=== PATIENT | male | born 1965 | race Caucasian/White ===

== ENCOUNTER 2019-05-13 08:54 | Emergency (ER) | payer OTHER ==
[~2019-05-13] VITALS: Ht 170.2 cm; Wt 67.6 kg
--- OUTSIDE RECORDS SUMMARY | ~2019-05-13 | XMS | Clinical Summary ---
Demographics + + + | Address | [address] | | | [place] [address] | + + + | Home Phone | | + + + | Preferred Language | Unknown | + + + | Marital Status | Single | + + + | Methodist Affiliation | PRO | + + + | Race | White | + + + | Ethnic Group | Not or | + + + Author + + + | Organization | Unknown | + + + | Address | Unknown | + + + | Phone | Unavailable | + + + Care Team Providers + +------+ + | Care Propulsion Generator Repairer Name | Role | Phone | + +------+ + PCP | Unavailable | + +------+ + Source Comments ESTHER is fully live on both [facility] and [facility] InPatient.[facility] Allergies Not on File Medications Not on file Active Problems Not on file Social History + +-------+ +--------+------+ | Tobacco Use | Types | Packs/Day | Years | Date | | | | | Used | | + +-------+ +--------+------+ | Never Assessed | | | | | + +-------+ +--------+------+ + + + | Sex Assigned at | Date Recorded | | | | + + + | Not on file | | + + + + + + + | Job Start Date | Occupation | Industry | + + + + | Not on file | Not on file | Not on file | + + + + + + + + | Travel History | Travel Start | Travel End | + + + + + + | No recent travel history available. | + + Last Filed Vital Signs Not on file Plan of Treatment + + + + + | Health Maintenance | Due Date | Last Done | Comments | + + + + + | Influenza (Flu) | | | | | vaccination (#1) | 9 | | | + + + + + | Pneumococcal | Aged Out | | No longer eligible | | vaccination | | | based on patient's | | | | | age to complete this | | | | | topic | + + + + + Results Not on filefrom Last 3 Months"
--- OUTSIDE RECORDS SUMMARY | ~2019-05-13 | XMS | Encounter Summary ---
Demographics + + + | Address | [address] | | | [place] [address] | + + + | Home Phone | | + + + | Preferred Language | Unknown | + + + | Marital Status | Single | + + + | Amish Affiliation | PRO | + + + | Race | White | + + + | Ethnic Group | Not or | + + + Author + + + | Author | [facility] | + + + | Organization | [facility] | + + + | Address | Unknown | + + + | Phone | Unavailable | + + + Care Team Providers + +------+ + | Care Jukebox Route Driver Name | Role | Phone | + +------+ + PCP | Unavailable | + +------+ + Encounter Details +--------+ + + + + | Date | Type | Department | Care Team | Description | +--------+ + + + + | 10/20/ | Abstract | Neurology at | Clinic, Neurology | | | 2019 | | [facility] & | | | | | | [address] | | | | | | Ruth Neida Mailcode: | | | | | | [facility] | | | | | | Health and Healing, | | | | | | [facility] | | | | | | [place], [place] | | | | | | [address] | | | | | | [phone] | | | +--------+ + + + [...]
--- OUTSIDE RECORDS SUMMARY | ~2019-05-13 | XMS | Encounter Summary ---
Demographics + + + | Address | [address] | | | [place] [address] | + + + | Home Phone | | + + + | Preferred Language | Unknown | + + + | Marital Status | Single | + + + | Denominational Affiliation | PRO | + + + | Race | White | + + + | Ethnic Group | Not or | + + + Author + + + | Author | [facility] | + + + | Organization | [facility] | + + + | Address | Unknown | + + + | Phone | Unavailable | + + + Care Team Providers + +------+ + | Care Renewable Energy Project Manager Name | Role | Phone | + +------+ + PCP | Unavailable | + +------+ + Encounter Details +--------+ + + + + | Date | Type | Department | Care Team | Description | +--------+ + + + + | 05/23/ | Abstract | Cardiology General | Unknown . | | | 2018 | | at [facility] [address] | | | | | | [address] Mailcode: | | | | | | [address] [facility] | | | | | | Health and Healing, | | | | | | Building | | | | | | Floor [place], [place] | | | | | | [address] | | | | | | [phone] | | | +--------+ + + + [...]
--- OUTSIDE RECORDS SUMMARY | ~2019-05-13 | XMS | Encounter Summary ---
Demographics + + + | Address | [address] | | | [place] [address] | + + + | Home Phone | | + + + | Preferred Language | Unknown | + + + | Marital Status | Single | + + + | Latter Day Affiliation | PRO | + + + | Race | White | + + + | Ethnic Group | Not or | + + + Author + + + | Author | [facility] | + + + | Organization | [facility] | + + + | Address | Unknown | + + + | Phone | Unavailable | + + + Care Team Providers + +------+ + | Care Fox Raiser Name | Role | Phone | + +------+ + PCP | Unavailable | + +------+ + Reason for Visit + + + | Reason | Comments | + + + | Returning Phone Call | | + + + Encounter Details +--------+ + + + + | Date | Type | Department | Care Team | Description | +--------+ + + + + | 05/28/ | Telephone | Cardiology in | Mikey Yu MD | Returning Phone Call | | 2018 | | [facility] | [address] | | | | | [place] at | [place], [place] | | | | | [address] | [address] | | | | | [facility] [address] | [phone] | | | | | [place], [place] | | | | | | [address] | | | | | | [phone] | | | +--------+ + + + [...]
--- OUTSIDE RECORDS SUMMARY | ~2019-05-13 | XMS | Encounter Summary ---
Demographics + + + | Address | [address] | | | [place] [address] | + + + | Home Phone | | + + + | Preferred Language | Unknown | + + + | Marital Status | Single | + + + | Sabianist Affiliation | PRO | + + + | Race | White | + + + | Ethnic Group | Not or | + + + Author + + + | Author | [facility] | + + + | Organization | [facility] | + + + | Address | Unknown | + + + | Phone | Unavailable | + + + Care Team Providers + +------+ + | Care Trailer Steerer Name | Role | Phone | + [...] [address] | | | | | [place] at | [place], [place] | | | | | [address] | [address] | | | | | [facility] [address] [address] | [phone] | | | | | [place], [place] | | | | | | [address] | | | | | | [phone] | | | +--------+ + + + [...]
--- OUTSIDE RECORDS SUMMARY | ~2019-05-13 | XMS | Encounter Summary ---
Demographics + + + | Address | [address] | | | [place] [address] | + + + | Home Phone | | + + + | Preferred Language | Unknown | + + + | Marital Status | Single | + + + | Holiness Affiliation | Unknown | + + + | Race | Unknown | + + + | Ethnic Group | Unknown | + + + Author + + + | Author | [employer] (Historical as of | | | 03-01-19) | + + + | Organization | [facility] [employer] (Historical as of | | | 03-01-19) | + + + | Address | Unknown | + + + | Phone | Unavailable | + + + Support + + +---------+ + | Name | Relationship | Address | Phone | + + +---------+ + | BettinaShaina | ECON | Unknown | | + + +---------+ + | Karan Matamoroson | ECON | Unknown | | + + +---------+ + Care Team Providers + +------+ + | Care Ground Support Equipment Fitter Name | Role | Phone | + +------+ + | Edgard Meade MD | PCP | | + +------+ + Encounter Details +--------+ + + + + | Date | Type | Department | Care Team | Description | +--------+ + + + + | 02/27/ | Documentati | [facility] | [place], | | | 2019 | on Only | [facility] Center | MD [address] | | | | | Patient Access [id number] | [address] | | | | | [address] [place], | [place] [address] | | | | | [place] [address] | [phone] | | | | | [phone] | | | +--------+ + + + [...] | | | + +---+---+---+ + + +---------+ + | Alcohol Use [...] on file | | + + + as of this encounter Plan of Treatment Not on fileas of this encounter Visit Diagnoses Not on filein this encounter"
--- OUTSIDE RECORDS SUMMARY | ~2019-05-13 | XMS | Clinical Summary ---
Demographics + + + | Address | [address] | | | [place] [address] | + + + | Home Phone | | + + + | Preferred Language | Unknown | + + + | Marital Status | Single | + + + | Congregation Affiliation | Unknown | + + + | Race | Unknown | + + + | Ethnic Group | Unknown | + + + Author + + + | Author | [employer] (Historical as of | | | 03-01-19) | + + + | Organization | [facility] [employer] (Historical as of | | | 03-01-19) [...] Team Providers + +------+ + | Care Patient Support Associate Name | Role | Phone | + [...] | | | | | | of mechoopda artery of | | | | | | left leg with | | | | | | intermit | | | | | | claudication ([facility]) | +--------+ + + + + | [...] of | | | | | | mechoopda artery of | | | | | | left leg with | | | | | | intermit | | | | | | claudication ([facility]) | | + +--------+ + + + [...] [facility] | [address] | [place] [address] | | + + + + + [...] +------+-------+ + | MEDICAID | EASTER | [id number] | | | [address] | | | N | | | | [place], [place] | | | [place] | | | | [address] | | | SECTION LEADER | | | | | + +--------+ [...] | reji | | | [address] | [address] | + +--------+ +--------+ + +"
--- OUTSIDE RECORDS SUMMARY | ~2019-05-13 | XMS | Encounter Summary ---
Demographics + + + | Address | [address] | | | [place] [address] | + + + | Home Phone | | + + + | Preferred Language | Unknown | + + + | Marital Status | Single | + + + | Synagogue Affiliation | PRO | + + + | Race | White | + + + | Ethnic Group | Not or | + + + Author + + + | Author | [facility] | + + + | Organization | [facility] | + + + | Address | Unknown | + + + | Phone | Unavailable | + + + Care Team Providers + +------+ + | Care Resource Room Teacher Name | Role | Phone | + +------+ + PCP | Unavailable | + +------+ + Encounter Details +--------+ + + + + | Date | Type | Department | Care Team | Description | +--------+ + + + + | 09/27/ | MyChart | [facility] | Hetal Hilario | RE: artemio del castillo | | 2011 | Encounter | Floor [address] | | | | | [address] | | | | | | Mailcode: [facility] | | | | | | [place], [place] | | | | | | [address] | | | | | | [phone] | | | +--------+ + + + [...]
--- OUTSIDE RECORDS SUMMARY | ~2019-05-13 | XMS | Encounter Summary ---
Demographics + + + | Address | [address] | | | [place] [address] | + + + | Home Phone | | + + + | Preferred Language | Unknown | + + + | Marital Status | Single | + + + | Shinto Affiliation | Unknown | + + + | Race | Unknown | + + + | Ethnic Group | Unknown | + + + Author + + + | Author | [employer] (Historical as of | | | 03-01-19) | + + + | Organization | [facility] [employer] (Historical as of | | | 03-01-19) [...] Team Providers + +------+ + | Care Bag Machine Operator Name | Role | Phone | + +------+ + | Edgard Meade MD | PCP | | + +------+ + Encounter Details +--------+ + + + + | Date | Type | Department | Care Team | Description | +--------+ + + + + | 02/27/ | Hospital | [facility] | [place], | Peripheral vascular | | 2019 | Encounter | [facility] | MD [address] | disease, unspecified | | | | Ultrasound [address] | (HCC); Atheroscler | | | | [address] | [place] [address] | of penobscot artery of | | | | [place] [address] | [phone] | left leg with | | | | [phone] | | intermit | | | | | | claudication ([facility]) | +--------+ + + + + Social [...] + + + as of this encounter Medications at Time of Discharge + + +-------+---------+--------+ + | Medication | Sig. | Disp. | Refills | Start | End Date | | | | | | Date | | + + +-------+---------+--------+ + | aspirin 81 MG | Take 81 mg by mouth | | | | | | chewable tablet | daily with | | | | | | | breakfast. | | | | | + + +-------+---------+--------+ + | meloxicam (MOBIC) | Take 15 mg by mouth | | | | | | 15 MG tablet | daily. | | | | | + + +-------+---------+--------+ + | pravastatin | Take 20 mg by mouth | | | | | | (PRAVACHOL) 20 MG | nightly. | | | | | | tablet | | | | | | + + +-------+---------+--------+ + as of this encounter Plan of Treatment Not on fileas of this encounter Procedures + +--------+ + + + | Procedure Name | Priori | Date/Time | Associated Diagnosis | Comments | | | ty | | | | + +--------+ + + + | US LOWER EXTREMITY | Routin | 02/27/2019 | Peripheral | Results for this | | ARTERIAL DUPLEX | e | 10:31 AM | vascular disease, | procedure are in the | | BILAT | | PDT | unspecified (HCC) | results section. | | | | | Atheroscler of | | | | | | penobscot artery of | | | | | | left leg with | | | | | | intermit | | | | | | claudication ([facility]) | | + +--------+ + + + in this encounter Results lower extremity arterial bilateral (02/27/2019 10:31 AM) + + + | Impressions | Performed At | + + + | 1. 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
--- OUTSIDE RECORDS SUMMARY | ~2019-05-13 | XMS | Clinical Summary ---
Demographics + + + | Address | [address] | | | [place] [address] | + + + | Home Phone | [email or web address] | + + + | Preferred Language | Unknown | + + + | Marital Status | Unknown | + + + | Mosque Affiliation | Unknown | + + + | Race | Unknown | + + + | Ethnic Group | Unknown | + + + Author + + + | Author | [facility] | | | and [place] | + + + | Organization | [facility] | | | and [...] Team Providers + +------+ + | Care Asp Net Developer Name | Role | Phone | + [...] + +---------+------+------+-------+ Active Problems Not on file Encounters +--------+ + + + + | Date | Type | Specialty | Care Team | Description | +--------+ + + + + | 02/27/ | Hospital | Radiology | Conversion | Peripheral vascular | | 2018 | Encounter | | Transaction, | disease, unspecified | | | | | Provider Unknown | ([facility]); Atheroscler | | | | | [address], | of [place] artery of | | | | | MD | left leg with | | | | | | intermit | | | | | | claudication ([facility]) | +--------+ + + + + from [...] + | Blood Pressure | 128/75 | 08/27/2018932 PST | + + + + | Pulse | 71 | 08/27/2018932 PST | + + + + | Temperature | - | - | + + + + | Respiratory Rate | - | - | + + + + | Oxygen Saturation | - | - | + + + + | Inhaled Oxygen | - | - | | Concentration | | | + + + + | Weight | 72.6 kg (160 lb) | 05/14/2018 1226 PDT | + + + + | [...] | ARTERIES BILATERAL | e | 10:31 PDT | | procedure are in the | | | | | | results section. | + +--------+ + + + from Last 3 Months Results VAS Lower Extremity Arteries Bilateral (02/27/2019 10:31 PDT) + + | Specimen | + [...] Note | + + | Obi, Rad Conversion - 03/21/2019 0955 PDT LOWER EXTREMITY ARTERIAL EXAM WITH IMAGING | | CLINICAL INFORMATION: | | Atherosclerosis with intermittent claudication | | COMPARISON: | | None | | PROCEDURE: | | Using continuous wave Doppler, systolic pressure measurements were | | recorded at the bilateral ankles and right brachial artery and indices | | were calculated. Additionally, Color-encoded duplex ultrasound was | | used to investigate the arteries of the lower extremities. | | Using continuous wave Doppler, systolic pressure measurements were | | recorded at the bilateral ankles and right brachial artery and indices | | were calculated. Additionally, Color-encoded duplex ultrasound was | | used to investigate the arteries of the bilateral lower extremities. | | FINDINGS: | | Peak systolic velocity and waveforms. All velocities in cm/sec. | | RIGHT | | Common Femoral Artery: 207, Triphasic. | | Profunda Femoral Artery: 92, Triphasic. | | Femoral Artery: | | Proximal: 100, Triphasic. | | Mid: 86, Triphasic. | | Distal: 106, Triphasic. | | Popliteal Artery: | | Mid: 118, Triphasic. | | Anterior Tibial Artery: | | Proximal: 49, Triphasic. | | Distal: 37, Triphasic. | | Posterior Tibial Artery: | | Proximal: 54, Triphasic. | | Distal: 65, Triphasic. | | Peroneal Artery: | | Proximal:37, Triphasic. | | Distal:34, Triphasic. | | LEFT: | | Common Femoral Artery: 90, Triphasic. | | Profunda Femoral Artery: 144, Triphasic. | | Femoral Artery: | | Proximal: 62, Triphasic. | | Mid: Occluded. | | Distal: 21, reconstituted. | | Popliteal Artery: | | Mid: 23, monophasic. | | Anterior Tibial Artery: | | Proximal: 32, Monophasic. | | Distal: 22, monophasic. | | Posterior Tibial Artery: | | Proximal: 21, monophasic. | | Distal: 18, monophasic. | | Peroneal Artery: | | Proximal:178, monophasic. | | Distal:Occluded. | | IMPRESSION: | | 1. Left leg: Triphasic inflow with mid superficial femoral artery | | occlusion and distal superficial femoral artery reconstitution with | | monophasic outflow. Two vessel distal runoff of anterior and posterior | | tibial arteries. | | 2. Right leg: Widely patent throughout with triphasic three-vessel | | runoff. | | Signed by: Germania Morris Howard | | Sign Date/Time: 02/27/2019 3:57 PM | + + from Last 3 Months"
--- OUTSIDE RECORDS SUMMARY | ~2019-05-13 | XMS | Encounter Summary ---
Demographics + + + | Address | [address] | | | [place] [address] | + + + | Home Phone | | + + + | Preferred Language | Unknown | + + + | Marital Status | Single | + + + | Mormon Affiliation | Unknown | + + + | Race | Unknown | + + + | Ethnic Group | Unknown | + + + Author + + + | Author | [employer] (Historical as of | | | 03-01-19) | + + + | Organization | [facility] [employer] (Historical as of | | | 03-01-19) [...] Providers + +------+ + | Care Manager Pharmacy Name | Role | Phone | + +------+ + | Edgard Meade MD | PCP | | + +------+ + Encounter Details +--------+ + + + + | Date | Type | Department | Care Team | Description | +--------+ + + + + | 02/27/ | Hospital | [facility] | [place], | Peripheral vascular | | 2019 | Encounter | [facility] | MD [address] | disease, unspecified | | | | Ultrasound [address] | (HCC); Atheroscler | | | | [address] | [place] [address] | of grindstone artery of | | | | [place] [address] | [phone] | left leg with | | | | [phone] | | intermit | | | | | | claudication ([facility]) | +--------+ + + + + Social [...] of | | | | | | grindstone artery of | | | | | | left leg with | | | | | | intermit | | | | | | claudication ([facility]) | | + +--------+ + + + [...] [facility] | [address] | [place] [address] | | + + + + + in this encounter Visit Diagnoses + + | Diagnosis | + + | Peripheral vascular disease, unspecified (HCC) | + + | Peripheral vascular disease, unspecified | + + | Atheroscler of grindstone artery of left leg with intermit claudication (HCC) | + + | Atherosclerosis of grindstone arteries of the extremities with intermittent claudication | + +"
--- OUTSIDE RECORDS SUMMARY | ~2019-05-13 | XMS | Encounter Summary ---
Demographics + + + | Address | [address] | | | [place] [address] | + + + | Home Phone | [email or web address] | + + + | Preferred Language | Unknown | + + + | Marital Status | Unknown | + + + | Religion Affiliation | Unknown | + + + | Race | Unknown | + + + | Ethnic Group | Unknown | + + + Author + + + | Author | [facility] | | | and [place] | + + + | Organization | [facility] | | | and [place] | + + + | Address | Unknown | + + + | Phone | Unavailable | + + + Support + + +---------+ + | Name | Relationship | Address | Phone | + + +---------+ + | Shaina Dunbar | ECON | Unknown | | + + +---------+ + | Karan Matamoroson | ECON | Unknown | | + + +---------+ + Care Team Providers + +------+ + | Care Vat Tender Name | Role | Phone | + +------+ + | Edgard Meade MD | PCP | | + +------+ + Encounter Details +--------+ + + + + | Date | Type | Department | Care Team | Description | +--------+ + + + + | 02/27/ | Hospital | [facility] | Conversion | Peripheral vascular | | 2019 | Encounter | [facility] | Transaction, | disease, unspecified | | | | ULTRASOUND [address] | Provider Unknown | ([facility]); Atheroscler | | | | [address] | [phone] | of [place] artery of | | | | [place], [place] | | left leg with | | | | [address] | Beau Liao, | intermit | | | | [phone] | [address] | claudication ([facility]) | | | | | [address]VE [place], [place] | | | | | | [address] | | | | | | | [...] + | Adebayo Crocker Conversion - 03/21/2019 0955 PDT LOWER EXTREMITY [...] unspecified | + + | Atheroscler of [place] artery of left leg with intermit claudication (HCC) | | Atherosclerosis of [place] arteries of the extremities with intermittent claudication | + + documented in this encounter"
--- OUTSIDE RECORDS SUMMARY | ~2019-05-13 | XMS | Encounter Summary ---
Demographics + + + | Address | [address] | | | [place] [address] | + + + | Home Phone | | + + + | Preferred Language | Unknown | + + + | Marital Status | Single | + + + | Jainism Affiliation | PRO | + + + | Race | White | + + + | Ethnic Group | Not or | + + + Author + + + | Author | [facility] | + + + | Organization | [facility] | + + + | Address | Unknown | + + + | Phone | Unavailable | + + + Care Team Providers + +------+ + | Care Web Development Intern Name | Role | Phone | + +------+ + PCP | Unavailable | + +------+ + Encounter Details +--------+ + + + + | Date | Type | Department | Care Team | Description | +--------+ + + + + | 05/23/ | Abstract | Cardiology General | Unknown . | | | 2018 | | at [facility] [address] | | | | | | [address] Mailcode: | | | | | | [facility] | | | | | | Health and Healing, | | | | | | Building | | | | | | Floor [place], [place] | | | | | | [address] | | | | | | [phone] | | | +--------+ + + + [...]
--- OUTSIDE RECORDS SUMMARY | ~2019-05-13 | XMS | Clinical Summary ---
Demographics + + + | Address | [address] | | | [place] [address] | + + + | Home Phone | [email or web address] | + + + | Preferred Language | Unknown | + + + | Marital Status | Unknown | + + + | Worship Affiliation | Unknown | + + + | Race | Unknown | + + + | Ethnic Group | Unknown | + + + Author + + + | Author | [facility] | | | and [place] | + + + | Organization | [facility] | | | [...] Team Providers + +------+ + | Care Boring Machine Operator Production Name | Role | Phone | + [...] | | | | Provider Unknown | ([facility]); Atheroscler | | | | | [address] Liao, | of [place] artery of | | | | | MD | left leg with | | | | | | intermit | | | | | | claudication ([facility]) | +--------+ + + + + from [...]
--- OUTSIDE RECORDS SUMMARY | ~2019-05-13 | XMS | Encounter Summary ---
Demographics + + + | Address | [address] | | | [place] [address] | + + + | Home Phone | | + + + | Preferred Language | Unknown | + + + | Marital Status | Single | + + + | Mandaen Affiliation | PRO | + + + | Race | White | + + + | Ethnic Group | Not or | + + + Author + + + | Author | [facility] | + + + | Organization | [facility] | + + + | Address | Unknown | + + + | Phone | Unavailable | + + + Care Team Providers + +------+ + | Care Windows Server Architect Name | Role | Phone | + +------+ + PCP | Unavailable | + +------+ + Encounter Details +--------+ + + + + | Date | Type | Department | Care Team | Description | +--------+ + + + + | 09/27/ | MyChart | [facility]th | Heatl Hilario | RE: artemio del castillo | | 2011 | Encounter | Floor [address] | | | | | [address] | | | | | | Mailcode: [facility] | | | | | | [place], [place] | | | | | | [address] | | | | | | [phone] | | | +--------+ + + + [...]
--- OUTSIDE RECORDS SUMMARY | ~2019-05-13 | XMS | Encounter Summary ---
Demographics + + + | Address | [address] | | | [place] [address] | + + + | Home Phone | | + + + | Preferred Language | Unknown | + + + | Marital Status | Single | + + + | Restoration Affiliation | PRO | + + + | Race | White | + + + | Ethnic Group | Not or | + + + Author + + + | Author | [facility] | + + + | Organization | [facility] | + + + | Address | Unknown | + + + | Phone | Unavailable | + + + Care Team Providers + +------+ + | Care Soil Technician Name | Role | Phone | + +------+ + PCP | Unavailable | + +------+ + Encounter Details +--------+ + + + + | Date | Type | Department | Care Team | Description | +--------+ + + + + | 10/20/ | Abstract | Neurology at | Clinic, Neurology | | | 2019 | | [facility] | [facility] [address] | | | | | | Ruth Neida Mailcode: | | | | | | [facility] | | | | | | Health and Healing, | | | | | | [facility] | | | | | | [place], [place] | | | | | | [address] | | | | | | [phone] | | | +--------+ + + + [...]
--- OUTSIDE RECORDS SUMMARY | ~2019-05-13 | XMS | Encounter Summary ---
Demographics + + + | Address | [address] | | | [place] [address] | + + + | Home Phone | | + + + | Preferred Language | Unknown | + + + | Marital Status | Single | + + + | Mandaeism Affiliation | Unknown | + + + | Race | Unknown | + + + | Ethnic Group | Unknown | + + + Author + + + | Author | [employer] [facility] (Historical as of | | | 03-01-19) | + + + | Organization | [facility] (Historical as of | | | 03-01-19) [...] Team Providers + +------+ + | Care Operations Forester Name | Role | Phone | + +------+ + | Edgard Meade MD | PCP | | + +------+ + Encounter Details +--------+ + + + + | Date | Type | Department | Care Team | Description | +--------+ + + + + | 02/27/ | Documentati | [facility] | [place], | | | 2019 | on Only | Medical Center | MD [address] | | | | | Patient Access [id number] | [address] | | | | | Rufino [address] [place], | [place] [address] | | | | | [place] [address] | [phone] | | | | | [phone] | | | +--------+ + + + [...]
--- OUTSIDE RECORDS SUMMARY | ~2019-05-13 | XMS | Encounter Summary ---
Demographics + + + | Address | [address] | | | [place] [address] | + + + | Home Phone | [email or web address] | + + + | Preferred Language | Unknown | + + + | Marital Status | Unknown | + + + | Oriental Orthodox Affiliation | Unknown | + + + [...] Team Providers + +------+ + | Care Sole Molding Machine Operator Name | Role | Phone | + +------+ + | Edgard Meade MD | PCP | | + +------+ + Encounter Details +--------+ + + + + | Date | Type | Department | Care Team | Description | +--------+ + + + + | 02/27/ | Hospital | [facility] | Conversion | Peripheral vascular | | 2019 | Encounter | [facility] | Transaction, | disease, unspecified | | | | ULTRASOUND [address] | Provider Unknown | ([facility]); Atheroscler | | | | [address] | [phone] | of [place] artery of | | | | [place], [place] | | left leg with | | | | [address] | [address], | intermit | | | | [phone] | [address] | claudication ([facility]) | | | | | [address]VE [place], [place] | | | | | | [address] | | | | | | | [...] unspecified | + + | 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
--- OUTSIDE RECORDS SUMMARY | ~2019-05-13 | XMS | Clinical Summary ---
Demographics + + + | Address | [address] | | | [place] [address] | + + + | Home Phone | | + + + | Preferred Language | Unknown | + + + | Marital Status | Single | + + + | Congregational Affiliation | Unknown | + + + | Race | Unknown | + + + | Ethnic Group | Unknown | + + + Author + + + | Author | [employer] (Historical as of | | | 03-01-19) | + + + | Organization | [facility] (Historical as of | | | 03-01-19) [...] Team Providers + +------+ + | Care Chronic Disease Epidemiologist Name | Role | Phone | + [...] | | | | | | of [place] artery of | | | | | | left leg with | | | | | | intermit | | | | | | claudication ([facility]) | +--------+ + + + + | [...] of | | | | | | atka artery of | | | | | | left leg with | | | | | | intermit | | | | | | claudication ([facility]) | | + +--------+ + + + [...] [facility] | [address] | [place] [address] | | + + + + + [...] +------+-------+ + | MEDICAID | EASTER | [id number] | | | [address] | | | [place] | | | | [place], [place] | | | [place] | | | | [address] | | | [employer] EXPERT | | | | | + +--------+ [...] | reji | | | [address] | [address] | + +--------+ +--------+ + +"
--- OUTSIDE RECORDS SUMMARY | ~2019-05-13 | XMS | Clinical Summary ---
Demographics + + + | Address | [address] | | | [place] [address] | + + + | Home Phone | | + + + | Preferred Language | Unknown | + + + | Marital Status | Single | + + + | Rastafari Affiliation | PRO | + + + | Race | White | + + + | Ethnic Group | Not or | + + + Author + + + | Organization | Unknown | + + + | Address | Unknown | + + + | Phone | Unavailable | + + + Care Team Providers + +------+ + | Care Relief Manager Name | Role | Phone | + +------+ + PCP | Unavailable | + +------+ + Source Comments ESTHER is fully live on both [facility] Ambulatory and [facility] InPatient.[facility] Allergies Not on File Medications Not [...]
[~2019-05-13 08:54] MED LIST: MECLIZINE HCL25 MG PO
--- OUTSIDE RECORDS SUMMARY | 2019-05-13 08:58 | XMS ---
PreManage Notification: TESSA SABILLON Security Learning Developer Events No recent Security Events currently on file CRITERIA MET - Group Notification CARE PROVIDERS There are no care providers on record at this time. Jahaira has no Care Guidelines for this patient. Andrew VISIT COUNT (12 MO.) 1 DAYNA Braxton TOTAL 1 NOTE: Visits indicate total known visits. ED/C VISIT TRACKING (12 MO.) 05/13/2019 08:55 DAYNA Garcia [place] TYPE: Emergency COMPLAINT: - LIVER PROBLEM INPATIENT VISIT TRACKING (12 MO.) No inpatient visits to display in this time frame [id number]
[2019-05-13] MEDS ORDERED: MELOXICAM15 MG PO (09:13)
[2019-05-13] MEDS ORDERED: METFORMIN HCL500 M1 PO (09:13)
[2019-05-13] MEDS ORDERED: ATORVASTATIN CA40 MG PO (09:13)
[2019-05-13] MEDS ORDERED: CLOPIDOGREL75 MG PO (09:13)
[2019-05-13] MEDS ORDERED: NORCO 5-325 TA1 EACH PO (12:41)
== END 2019-05-13 14:59 | disposition short-term general hospital (02) ==
LOC: ED 08:54
DX: K83.1 Obstruction of bile duct (principal); K86.9 Disease of pancreas, unspecified; Z87.891 Personal history of nicotine dependence; Z79.899 Other long term (current) drug therapy; Z79.84 Long term (current) use of oral hypoglycemic drugs
CPT/HCPCS: 36415; 71046; 74178; 80053; 83690; 85025; 85610; 85730; 99285-25; Q9967

== ENCOUNTER 2019-05-30 11:04 | Emergency (ER) | payer OTHER ==
[~2019-05-30] VITALS: Ht 170.2 cm; Wt 64.9 kg
--- OUTSIDE RECORDS SUMMARY | ~2019-05-30 | XMS | Encounter Summary ---
Demographics + + + | Address | [address] | | | [place] [address] | + + + | Home Phone | | + + + | Preferred Language | Unknown | + + + | Marital Status | Single | + + + | Anabaptism Affiliation | PRO | + + + | Race | White | + + + | Ethnic Group | Not or | + + + Author + + + | Author | [facility] | + + + | Organization | [facility] | + + + | Address | Unknown | + + + | Phone | Unavailable | + + + Care Team Providers + +------+ + | Care Manager Lighting Name | Role | Phone | + +------+ + PCP | Unavailable | + +------+ + Encounter Details +--------+ + + + + | Date | Type | Department | Care Team | Description | +--------+ + + + + | 10/20/ | Abstract | Neurology at | Clinic, Neurology | | | 2019 | | [facility] & | | | | | | [address]aling [address] | | | | | | Ruth Neida Mailcode: | | | | | | [facility] | | | | | | Health and Healing, | | | | | | [facility] | | | | | | [place], [place] | | | | | | [address] | | | | | | [phone] | | | +--------+ + + + + Social History + +-------+ +--------+------+ [...] recent travel history available. | + + documented as of this encounter Plan of Treatment Not on filedocumented as of this encounter Visit Diagnoses Not on filedocumented in this encounter"
--- OUTSIDE RECORDS SUMMARY | ~2019-05-30 | XMS | Encounter Summary ---
Demographics + + + | Address | [address] | | | [place] [address] | + + + | Home Phone | | + + + | Preferred Language | Unknown | + + + | Marital Status | Single | + + + | Lutheran Affiliation | PRO | + + + | Race | White | + + + | Ethnic Group | Not or | + + + Author + + + | Author | [facility] | + + + | Organization | [facility] | + + + | Address | Unknown | + + + | Phone | Unavailable | + + + Care Team Providers + +------+ + | Care Treasury Consultant Name | Role | Phone | + +------+ + PCP | Unavailable | + +------+ + Encounter Details +--------+ + + + + | Date | Type | Department | Care Team | Description | +--------+ + + + + | 05/23/ | Abstract | Cardiology General | Unknown . | | | 2018 | | at [facility] [address] | | | | | | [address] Mailcode: | | | | | | [facility] | | | | | | Health and Healing, | | | | | | Building | | | | | | Floor [place], [place] | | | | | | [address] | | | | | | [phone] | | | +--------+ + + + [...]
--- OUTSIDE RECORDS SUMMARY | ~2019-05-30 | XMS | Encounter Summary ---
Demographics + + + | Address | [address] | | | [place] [address] | + + + | Home Phone | [email or web address] | + + + | Preferred Language | Unknown | + + + | Marital Status | Unknown | + + + | Worship Affiliation | Unknown | + + + | Race | Unknown | + + + | Ethnic Group | Unknown | + + + Author + + + | Author | [facility] | | | and [place] | + + + | Organization | [facility] | | | [...] Team Providers + +------+ + | Care Dimensional Engineer Name | Role | Phone | + +------+ + PCP | Unavailable | + +------+ + Encounter Details +--------+ + + + + | Date | Type | Department | Care Team | Description | +--------+ + + + + | 05/14/ | Hospital | [facility] | Conversion | Mass of left cardiac | | 2018 | Encounter | [facility] | Transaction, | ventricle | | | | [address] | Provider Unknown | | | | | [place], [place] | [phone] | | | | | [address] | | | | | | [phone] | Edgard Meade MD | | | | | | [address] | | | | | | [place] | | | | | | [address] | | | | | | | [...] + + documented as of this encounter Last Filed Vital Signs + + + + + | Vital Sign | Reading | Time Taken | Comments | + + + + + | Blood Pressure | - | - | | + + + + + | Pulse | - | - | | + [...] | | + + + + + documented in this encounter Plan of Treatment Not on filedocumented as of this encounter Procedures + +--------+ + + + | Procedure Name | Priori | Date/Time | Associated Diagnosis | Comments | | | ty | | | | + +--------+ + + + | MRI CARDIAC W WO | Routin | 05/14/2018 | | Results for this | | CONTRAST | e | 1:18 PM | | procedure are in the | | | | PDT | | results section. | + +--------+ + + + documented in this encounter Results MRI Cardiac w wo Contrast (05/14/2018 1:18 PM PDT) + + | Specimen | + + | | + + + + + | Impressions | Performed At | + + + | 1. Possible small left ventricular mass visualized on | | | echocardiogram dated 04/23/2018 is not visualized with MRI. Recommend | | | continued attention on follow-up echocardiogram in 6 months. | | | These findings were communicated via telephone to Dr. Meade by | | | Dilshad on 05/14/2018 at 1:30 PM. | | + + + + + + | Narrative | Performed At | + + + | [facility] MRI CARDIAC WITH WITHOUT CONTRAST 05/14/2018 1:18 PM | | | HISTORY: 53 years. Male. Evaluate left ventricular mass. | | | TECHNIQUE: MRI CARDIAC WITH WITHOUT CONTRAST. Multiplanar | | | multisequence cardiac MRI with and without contrast. Contrast: 7 | | | mL Gadavist. COMPARISON: Echocardiogram dated 04/23/2018. | | | FINDINGS: Normal cardiac size. No pericardial effusion. No filling | | | defect within the heart. Normal myocardial perfusion at rest. | | | No regional wall motion abnormality. Possible small left | | | ventricular mass visualized on echocardiogram dated 04/23/2018 is not | | | visualized with MRI. No abnormal early or delayed myocardial | | | enhancement. | | + + + + --+ | Procedure Note | + --+ | Adebayo Crocker - 02/26/2019 11:41 [facility] | | EVUHOZLO81/30/2018 1:18 PM HISTORY:53 years. Male. Evaluate left ventricular mass. | | TECHNIQUE:MRI CARDIAC WITH WITHOUT CONTRAST. Multiplanar multisequence cardiac MRI with | | and without contrast. Contrast: 7 mL Gadavist. COMPARISON:Echocardiogram dated | | 04/23/2018. FINDINGS:Normal cardiac size. No pericardial effusion. No filling defect | | within the heart. Normal myocardial perfusion at rest. No regional wall motion | | abnormality. Possible small left ventricular mass visualized on echocardiogram dated | | 04/23/2018 is not visualized with MRI. No abnormal early or delayed myocardial | | enhancement. IMPRESSION: 1. Possible small left ventricular mass visualized on | | echocardiogram dated 04/23/2018 is not visualized with MRI. Recommend continued attention | | on follow-up echocardiogram in 6 months. These findings were communicated via | | telephone to Dr. Meade by Dr. Yung on 05/14/2018 at 1:30 PM. | |Echocardiogram dated 04/23/2018. | | | |FINDINGS: | |Normal cardiac size. No pericardial effusion. No filling defect within the heart. | | | |Normal myocardial perfusion at rest. | | | |No regional wall motion abnormality. | | | |Possible small left ventricular mass visualized on echocardiogram dated 04/23/2018 is not vi sualized with MRI. | | | |No abnormal early or delayed myocardial enhancement. | | | |IMPRESSION: | |1. Possible small left ventricular mass visualized on echocardiogram dated 04/23/2018 is no t visualized with MRI. Recommend continued attention on follow-up echocardiogram in 6 months . | | | | | |These findings were communicated via telephone to Dr. Meade by Dr. Yung on 05/14/2018 a t 1:30 PM. | | | | | + --+ documented in this encounter Visit Diagnoses + + | Diagnosis | + + | Mass of left cardiac ventricle | + + documented in this encounter"
--- OUTSIDE RECORDS SUMMARY | ~2019-05-30 | XMS | Encounter Summary ---
Demographics + + + | Address | [address] | | | [place] [address] | + + + | Home Phone | | + + + | Preferred Language | Unknown | + + + | Marital Status | Single | + + + | Gnosticism Affiliation | PRO | + + + | Race | White | + + + | Ethnic Group | Not or | + + + Author + + + | Author | [facility] | + + + | Organization | [facility] | + + + | Address | Unknown | + + + | Phone | Unavailable | + + + Care Team Providers + +------+ + | Care Patch Finisher Name | Role | Phone | + +------+ + PCP | Unavailable | + +------+ + Encounter Details +--------+ + + + + | Date | Type | Department | Care Team | Description | +--------+ + + + + | 09/27/ | MyChart | [facility] 7th | Hetal Hilario | RE: artemio del castillo | | 2011 | Encounter | Floor [address] | | | | | [address] | | | | | | Mailcode: [facility] | | | | | | [place], [place] | | | | | | [address] | | | | | | [phone] | | | +--------+ + + + [...]
--- OUTSIDE RECORDS SUMMARY | ~2019-05-30 | XMS | Encounter Summary ---
Demographics + + + | Address | [address] | | | [place] [address] | + + + | Home Phone | [email or web address] | + + + | Preferred Language | Unknown | + + + | Marital Status | Unknown | + + + | Sabianist Affiliation | Unknown | + + + | Race | Unknown | + + + | Ethnic Group | Unknown | + + + Author + + + | Author | [facility] | | | and [place] | + + + | Organization | [facility] | | | [...] Team Providers + +------+ + | Care Charter Representative Name | Role | Phone | + +------+ + | Edgard Meade MD | PCP | | + +------+ + Encounter Details +--------+ + + + + | Date | Type | Department | Care Team | Description | +--------+ + + + + | 04/23/ | Orders Only | [facility] | Edgard Meade, | | | 2017 | | CONVERSION [address] | MD [address] | | | | | [address] | [address] [place] | | | | | [place], [place] | [address] | | | | | [address] | | | | | | [phone] | | | +--------+ + + + [...] | + +--------+ + + + | ECHO INTERPRETATION | Routin | 04/23/2018 | | Results for this | | OF OUTSIDE FILMS | e | 3:41 PM | | procedure are in the | | | | PDT | | results section. | + +--------+ + + + documented in this encounter Results ECHO Interpretation of Outside Films (04/23/2018 3:41 PM PDT) + + | Specimen | + + | | + + + + + | Impressions | Performed At | + + + | 1. LV size, wall thickness and systolic function are normal, with an | | | EF of 60%. 2. The right ventricle is normal in size and function. | | | 3. There is a rounded, 1.1x1.0 cm echodense, contractile mass of | | | undetermined etiology in the basal posterolateral wall, seen in the | | | apical 4 chamber view (image # 35). Consider a cardiac MRI for | | | better evaluation. 4. No significant valvular abnormalities are | | | noted. | | + + + + + + | Narrative | Performed At | + + + | Patient Name: Herve Matamoros Date of : 1965 | | | Performing Physician: KELSEY MORFNI MD | | | | | | INDICATIONS Near syncope, chest pain CONCLUSIONS | | | 1. LV size, wall thickness and systolic function are | | | normal, with an EF of 60%. 2. The right ventricle is normal in size | | | and function. 3. There is a rounded, 1.1x1.0 cm echodense, | | | contractile mass of undetermined etiology in the basal posterolateral | | | wall, seen in the apical 4 chamber view (image # 35). Consider a | | | cardiac MRI for better evaluation. 4. No significant valvular | | | abnormalities are noted. FINDINGS -------- ECG rhythm: Sinus | | | rhythm. Study: A 2-dimensional transthoracic echocardiogram with | | | m-mode, spectral and color flow Doppler was perfomed. Study: This was | | | a technically adequate study. Left Ventricle: LV size, wall | | | thickness and systolic function are normal, with an EF of 60%. Left | | | Ventricle: No regional wall motion abnormalities. Left Ventricle: The | | | diastolic filling pattern is normal for the age of the patient. | | | Right Ventricle: The right ventricle is normal in size and function. | | | Left Atrium: The left atrium is normal in size. Right Atrium: The | | | right atrium is normal in size. Aortic Valve: The aortic valve | | | appears to be trileaflet. Aortic Valve: There is mild aortic valve | | | sclerosis without stenosis. Aortic Valve: There is no evidence of | | | aortic regurgitation. Mitral Valve: The mitral valve is normal. | | | Mitral Valve: There is trace mitral regurgitation. Mitral Valve: No | | | evidence of MVP Tricuspid Valve: The tricuspid valve appears | | | structurally normal. Tricuspid Valve: Trace tricuspid regurgitation | | | present. Tricuspid Valve: There is no evidence of pulmonary | | | hypertension. Tricuspid Valve: The right ventricular systolic | | | pressure (pulmonary artery systolic pressure), as measured by Doppler, | | | is 21.62mmHg. Pulmonic Valve: The pulmonic valve is normal. | | | Pericardium: There is no pericardial effusion. IVC/Hepatic Veins: The | | | IVC is normal size (1.5-2.5cm) and collapses >50% with sniff, | | | consistent with central venous pressures of 5-10mmHg. Aorta: The | | | aortic root, ascending aorta and aortic arch are normal. Mass: There | | | is a rounded, 1.1x1.0 cm echodense, contractile mass of undetermined | | | etiology in the basal posterolateral wall, seen in the apical 4 | | | chamber view (image # 35). It Thrombus: No clot visualized | | | Thrombus: No vegetation visualized. Septum: No ASD observed. Septum: | | | No VSD observed. MEASUREMENTS Ao asc: 3.16 cm | | | Ao Diam: 3.[address] junct: 3.11 cm IVC: 1.88 cm LA | | | Diam: 3.40 cm LA Major: 4.32 cm EDV(Teich): 127.79 ml | | | IVSd: 1.00 cm LVIDd: 5.17 cm LVPWd: 0.95 cm LVOT Area: | | | 3.65 cm2 LVOT Diam: 2.15 cm %FS: 36.80 % EF(Teich): 66.28 | | | % ESV(Teich): 43.08 ml LVIDs: 3.26 cm SV(Teich): 84.70 ml | | | RA Major: 4.29 cm RV Major: 6.27 cm RVIDd: 2.42 cm TV Mary Jo | | | Diam: 2.67 cm Ao Root: 3.04 cm Ao Diam SVals: 3.11 cm | | | LVEF MOD A2C: 58.48 % SV MOD A2C: 52.08 ml LVEF MOD A4C: | | | 60.88 % SV MOD A4C: 53.63 ml EF Biplane: 59.66 % LVEDV MOD | | | BP: 89.11 ml LVESV MOD BP: 35.95 ml LVEDV MOD A2C: 89.06 ml | | | LVLd A2C: 7.92 cm LVEDV MOD A4C: 88.08 ml LVLd A4C: 8.05 | | | cm LVESV MOD A2C: 36.97 ml LVLs A2C: 6.67 cm LVESV MOD A4C: | | | 34.44 ml LVLs A4C: 6.83 cm LAESV(A-L): 37.27 ml LAESV | | | Index (A-L): 20.36 ml/m2 LAAs A2C: 14.41 cm2 LAESV A-L A2C: | | | 36.79 ml LALs A2C: 4.79 cm LAAs A4C: 14.19 cm2 LAESV A-L | | | A4C: 36.70 ml LALs A4C: 4.65 cm RAAs: 11.64 cm2 RAESV A-L: | | | 25.41 ml RAESV MOD: 24.38 ml RALs: 4.52 cm TAPSE: 2.19 | | | cm AV maxP.31 mmHg AV meanP.23 mmHg AV Vmax: 1.03 | | | m/s AV Vmean: 0.69 m/s AV VTI: 19.15 cm KIMBERLY Vmax: 3.29 | | | cm2 KIMBERLY (VTI): 3.10 cm2 LVOT maxP.51 mmHg LVOT meanPG: | | | 1.70 mmHg LVSI Dopp: 32.50 ml/m2 LVSV Dopp: 59.49 ml LVOT | | | Vmax: 0.93 m/s LVOT Vmean: 0.59 m/s LVOT VTI: 16.27 cm MV | | | A Leonides: 0.51 m/s MV Dec Cherry: 3.90 m/s2 MV DecT: 188.43 ms | | | MV E Leonides: 0.73 m/s MV E/A Ratio: 1.43 MV PHT: 54.64 ms | | | MVA By PHT: 4.02 cm2 Septal e': 0.08 m/s Septal E/e': 8.69 | | | Lateral e': 0.09 m/s Lateral E/e': 7.47 RAP: 5 mmHg RVSP: | | | 21.62 mmHg TR maxP.62 mmHg TR Vmax: 2.03 m/s | | | Hydrometer Tester: [email or web address]-PIERRE Authenticated by: KELSEY MORFIN MD Report | | | Date/Time: -- [id number]:15:51 | | + + + + + | Procedure Note | + + | Adebayo Crocker Conversion - 03/06/2019 4:47 PM PDT Patient Name: Jay Matamoros of | | : 1965 Performing Physician: KELSEY MORFIN, | | INDICATIONS N | | ear syncope, chest pain CONCLUSIONS 1. LV size, wall thickness and systolic | | function are normal, with an EF of 60%.2. The right ventricle is normal in size and | | function.3. There is a rounded, 1.1x1.0 cm echodense, contractile mass of undetermined | | etiology in the basal posterolateral wall, seen in the apical 4 chamber view (image # | | 35). Consider a cardiac MRI for better evaluation. 4. No significant valvular | | abnormalities are noted. FINDINGS--------ECG rhythm: Sinus rhythm.Study: A 2-dimensional | | transthoracic echocardiogram with m-mode, spectral and color flow Doppler was | | perfomed.Study: This was a technically adequate study.Left Ventricle: LV size, wall | | thickness and systolic function are normal, with an EF of 60%.Left Ventricle: No | | regional wall motion abnormalities.Left Ventricle: The diastolic filling pattern is | | normal for the age of the patient.Right Ventricle: The right ventricle is normal in size | | and function.Left Atrium: The left atrium is normal in size.Right Atrium: The right | | atrium is normal in size.Aortic Valve: The aortic valve appears to be trileaflet.Aortic | | Valve: There is mild aortic valve sclerosis without stenosis.Aortic Valve: There is no | | evidence of aortic regurgitation.Mitral Valve: The mitral valve is normal.Mitral Valve: | | There is trace mitral regurgitation.Mitral Valve: No evidence of MVPTricuspid Valve: The | | tricuspid valve appears structurally normal.Tricuspid Valve: Trace tricuspid | | regurgitation present.Tricuspid Valve: There is no evidence of pulmonary | | hypertension.Tricuspid Valve: The right ventricular systolic pressure (pulmonary artery | | systolic pressure), as measured by Doppler, is 21.62mmHg.Pulmonic Valve: The pulmonic | | valve is normal.Pericardium: There is no pericardial effusion.IVC/Hepatic Veins: The IVC | | is normal size (1.5-2.5cm) and collapses >50% with sniff, consistent with central | | venous pressures of 5-10mmHg.Aorta: The aortic root, ascending aorta and aortic arch are | | normal.Mass: There is a rounded, 1.1x1.0 cm echodense, contractile mass of undetermined | | etiology in the basal posterolateral wall, seen in the apical 4 chamber view (image # | | 35). ItThrombus: No clot visualizedThrombus: No vegetation visualized.Septum: No ASD | | observed.Septum: No VSD observed. MEASUREMENTS Ao asc: 3.16 cmAo Diam: | | 3.[address] junct: 3.11 cmIVC: 1.88 cmLA Diam: 3.40 cmLA Major: 4.32 | | cmEDV(Teich): 127.79 mlIVSd: 1.00 cmLVIDd: 5.17 cmLVPWd: 0.95 cmLVOT Area: | | 3.65 [id number] Diam: 2.15 cm%FS: 36.80 %EF(Teich): 66.28 %ESV(Teich): 43.08 | | mlLVIDs: 3.26 cmSV(Teich): 84.70 mlRA Major: 4.29 cmRV Major: 6.27 cmRVIDd: | | 2.42 cmTV Mary Jo Diam: 2.67 cmAo Root: 3.04 cmAo Diam SVals: 3.11 cmLVEF MOD A2C: | | 58.48 %SV MOD A2C: 52.08 mlLVEF MOD A4C: 60.88 %SV MOD A4C: 53.63 mlEF Biplane: | | 59.66 %LVEDV MOD BP: 89.11 mlLVESV MOD BP: 35.95 mlLVEDV MOD A2C: 89.06 mlLVLd | | A2C: 7.92 cmLVEDV MOD A4C: 88.08 mlLVLd A4C: 8.05 cmLVESV MOD A2C: 36.97 mlLVLs | | A2C: 6.67 cmLVESV MOD A4C: 34.44 mlLVLs A4C: 6.83 cmLAESV(A-L): 37.27 mlLAESV | | Index (A-L): 20.36 ml/m2LAAs A2C: 14.41 [id number] A-L A2C: 36.79 mlLALs A2C: 4.79 | | cmLAAs A4C: 14.19 [id number] A-L A4C: 36.70 mlLALs A4C: 4.65 cmRAAs: 11.64 | | [id number] A-L: 25.41 mlRAESV MOD: 24.38 mlRALs: 4.52 cmTAPSE: 2.19 cmAV maxPG: | | 4.31 mmHgAV meanP.23 mmHgAV Vmax: 1.03 m/Bhavesh Vmean: 0.69 m/Bhavesh VTI: 19.15 | | cmAVA Vmax: 3.29 cm2AVA (VTI): 3.10 [id number] maxP.51 mmHgLVOT meanP.70 | | mmHgLVSI Dopp: 32.50 ml/m2LVSV Dopp: 59.49 mlLVOT Vmax: 0.93 m/sLVOT Vmean: 0.59 | | m/sLVOT VTI: 16.27 cmMV A Leonides: 0.51 m/sMV Dec Cherry: 3.90 m/s2MV DecT: 188.43 | | msMV E Leonides: 0.73 m/sMV E/A Ratio: 1.43MV PHT: 54.64 msMVA By PHT: 4.02 hn3Gvesyu | | e': 0.08 m/sSeptal E/e': 8.69Lateral e': 0.09 m/sLateral E/e': 7.47RAP: 5 | | mmHgRVSP: 21.62 mmHgTR maxP.62 mmHgTR Vmax: 2.03 m/s Hydrometer Tester: | | DHAuthenticated by: INEZ EVERETTepaziza Date/Time: -- [id number]:15:51 | | IMPRESSION: 1. LV size, wall thickness and systolic function are normal, with an EF of | | 60%.2. The right ventricle is normal in size and function.3. There is a rounded, 1.1x1.0 | | cm echodense, contractile mass of undetermined etiology in the basal posterolateral | | wall, seen in the apical 4 chamber view (image # 35). Consider a cardiac MRI for better | | evaluation. 4. No significant valvular abnormalities are noted. | |IVC: 1.88 cm | |LA Diam: 3.40 cm | |LA Major: 4.32 cm | |EDV(Teich): 127.79 ml | |IVSd: 1.00 cm | |LVIDd: 5.17 cm | |LVPWd: 0.95 cm | |LVOT Area: 3.65 cm2 | |LVOT Diam: 2.15 cm | |%FS: 36.80 % | |EF(Teich): 66.28 % | |ESV(Teich): 43.08 ml | |LVIDs: 3.26 cm | |SV(Teich): 84.70 ml | |RA Major: 4.29 cm | |RV Major: 6.27 cm | |RVIDd: 2.42 cm | |TV Mary Jo Diam: 2.67 cm | |Ao Root: 3.04 cm | |Ao Diam SVals: 3.11 cm | |LVEF MOD A2C: 58.48 % | |SV MOD A2C: 52.08 ml | |LVEF MOD A4C: 60.88 % | |SV MOD A4C: 53.63 ml | |EF Biplane: 59.66 % | |LVEDV MOD BP: 89.11 ml | |LVESV MOD BP: 35.95 ml | |LVEDV MOD A2C: 89.06 ml | |LVLd A2C: 7.92 cm | |LVEDV MOD A4C: 88.08 ml | |LVLd A4C: 8.05 cm | |LVESV MOD A2C: 36.97 ml | |LVLs A2C: 6.67 cm | |LVESV MOD A4C: 34.44 ml | |LVLs A4C: 6.83 cm | |LAESV(A-L): 37.27 ml | |LAESV Index (A-L): 20.36 ml/m2 | |LAAs A2C: 14.41 cm2 | |LAESV A-L A2C: 36.79 ml | |LALs A2C: 4.79 cm | |LAAs A4C: 14.19 cm2 | |LAESV A-L A4C: 36.70 ml | |LALs A4C: 4.65 cm | |RAAs: 11.64 cm2 | |RAESV A-L: 25.41 ml | |RAESV MOD: 24.38 ml | |RALs: 4.52 cm | |TAPSE: 2.19 cm | |AV maxP.31 mmHg | |AV meanP.23 mmHg | |AV Vmax: 1.03 m/s | |AV Vmean: 0.69 m/s | |AV VTI: 19.15 cm | |KIMBERLY Vmax: 3.29 cm2 | |KIMBERLY (VTI): 3.10 cm2 | |LVOT maxP.51 mmHg | |LVOT meanP.70 mmHg | |LVSI Dopp: 32.50 ml/m2 | |LVSV Dopp: 59.49 ml | |LVOT Vmax: 0.93 m/s | |LVOT Vmean: 0.59 m/s | |LVOT VTI: 16.27 cm | |MV A Leonides: 0.51 m/s | |MV Dec Cherry: 3.90 m/s2 | |MV DecT: 188.43 ms | |MV E Leonides: 0.73 m/s | |MV E/A Ratio: 1.43 | |MV PHT: 54.64 ms | |MVA By PHT: 4.02 cm2 | |Septal e': 0.08 m/s | |Septal E/e': 8.69 | |Lateral e': 0.09 m/s | |Lateral E/e': 7.47 | |RAP: 5 mmHg | |RVSP: 21.62 mmHg | |TR maxP.62 mmHg | |TR Vmax: 2.03 m/s | | | |Hydrometer Tester: JEAN-PIERRE | |Authenticated by: KELSEY MORFIN MD | |Report Date/Time: -- [id number]:15:51 | | | |IMPRESSION: | |1. LV size, wall thickness and systolic function are normal, with an EF of 60%. | |2. The right ventricle is normal in size and function. | |3. There is a rounded, 1.1x1.0 cm echodense, contractile mass of undetermined etiology in t he basal posterolateral wall, seen in the apical 4 chamber view (image # 35). Consider a [facility] MRI for better evaluation. 4. No significant valvular | |abnormalities are noted. | + + documented in this encounter Visit Diagnoses Not on filedocumented in this encounter"
--- OUTSIDE RECORDS SUMMARY | ~2019-05-30 | XMS | Encounter Summary ---
Demographics + + + | Address | [address] | | | [place] [address] | + + + | Home Phone | | + + + | Preferred Language | Unknown | + + + | Marital Status | Single | + + + | Hindu Affiliation | PRO | + + + | Race | White | + + + | Ethnic Group | Not or | + + + Author + + + | Author | [facility] | + + + | Organization | [facility] | + + + | Address | Unknown | + + + | Phone | Unavailable | + + + Care Team Providers + +------+ + | Care Drying Machine Operator Package Yarns Name | Role | Phone | + [...] Faraz Carrasquillo | | | | | [place] at | [place], [place] | | | | | [place] [address] | [address] | | | | | [facility] [address] | [phone] | | | | | [place], [place] | | | | | | [address] | | | | | | [phone] | | | +--------+ + + + [...]
--- OUTSIDE RECORDS SUMMARY | ~2019-05-30 | XMS | Clinical Summary ---
Demographics + + + | Address | [address] | | | [place] [address] | + + + | Home Phone | | + + + | Preferred Language | Unknown | + + + | Marital Status | Single | + + + | Temple Affiliation | Unknown | + + + | Race | Unknown | + + + | Ethnic Group | Unknown | + + + Author + + + | Author | [facility] (Historical as of | | | 03-01-19) | + + + | Organization | [facility] (Historical as of | | | 03-01-19) [...] Team Providers + +------+ + | Care Temporary Office Assistant Name | Role | Phone | + [...] + +-------+---------+------+------+-------+ Active Problems Not on file Encounters +--------+ + + + + | Date | Type | Specialty | Care Team | Description | +--------+ + + + + | 02/27/ | Hospital | | Yanni, | Peripheral vascular | | 2019 | Encounter | | MD Beau | disease, unspecified | | | | | | (HCC); 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 | | | | | | intermit | | | | | | claudication ([facility]) | +--------+ + + + + | 02/27/ | Documentati | | Yanni, | | | 2019 | on Only | | MD Beau | | +--------+ + + + + from Last 3 Months Family History + + +------+ + | [...] + + + + | Vaccine: | 07/26/198 | | | | Dtap/Tdap/Td (1 - [...] | | + + + + + Procedures + +--------+ + + + | Procedure Name | Priori | Date/Time | Associated Diagnosis | Comments | | | ty | | | | + +--------+ + + + | LOWER EXTREMITY | Routin | 02/27/2019 | Peripheral | Results for this | | ARTERIAL DUPLEX | e | 10:31 AM | vascular disease, | procedure are in the | | BILAT | | PDT | unspecified (HCC) | results section. | | | | | Atheroscler of | | | | | | [place] artery of | | | | | | left leg with | | | | | | intermit | | | | | | claudication ([facility]) | | + +--------+ + + + from Last 3 Months Results lower extremity arterial bilateral (02/27/2019 10:31 AM) + + + | Impressions | Performed At | + + + | 1. Left leg: Triphasic inflow with mid superficial femoral artery | [facility] | | occlusion and distal superficial femoral artery reconstitution with | RADIOLOGY | | monophasic outflow. Two vessel distal runoff of anterior and | | | posterior tibial arteries. 2. Right leg: Widely patent throughout | | | with triphasic three-vessel runoff. Signed by: Germania Morris, Jamal | | | Sign Date/Time: 02/27/2019 3:57 PM | | + + + + + + | Narrative | Performed At | + + + | LOWER EXTREMITY ARTERIAL EXAM WITH IMAGING CLINICAL INFORMATION: | [facility] | | Atherosclerosis with intermittent claudication COMPARISON: None | RADIOLOGY | | PROCEDURE: Using continuous wave Doppler, systolic pressure | | | measurements were recorded at the bilateral ankles and right brachial | | | artery and indices were calculated. Additionally, Color-encoded | | | duplex ultrasound was used to investigate the arteries of | | | the lower extremities. Using continuous wave Doppler, systolic | | | pressure measurements were recorded at the bilateral ankles and right | | | brachial artery and indices were calculated. Additionally, | | | Color-encoded duplex ultrasound was used to investigate the arteries | | | of the bilateral lower extremities. FINDINGS: Peak systolic velocity | | | and waveforms. All velocities in cm/sec. RIGHT Common Femoral | | | Artery: 207, Triphasic. Profunda Femoral Artery: 92, Triphasic. | | | Femoral Artery: Proximal: 100, Triphasic. Mid: 86, Triphasic. | | | Distal: 106, Triphasic. Popliteal Artery: Mid: 118, Triphasic. | | | Anterior Tibial Artery: Proximal: 49, Triphasic. Distal: 37, | | | Triphasic. Posterior Tibial Artery: Proximal: 54, Triphasic. | | | Distal: 65, Triphasic. Peroneal Artery: Proximal:37, Triphasic. | | | Distal:34, Triphasic. LEFT: Common Femoral Artery: 90, Triphasic. | | | Profunda Femoral Artery: 144, Triphasic. Femoral Artery: Proximal: | | | 62, Triphasic. Mid: Occluded. Distal: 21, reconstituted. Popliteal | | | Artery: Mid: 23, monophasic. Anterior Tibial Artery: Proximal: 32, | | | Monophasic. Distal: 22, monophasic. Posterior Tibial Artery: | | | Proximal: 21, monophasic. Distal: 18, monophasic. Peroneal Artery: | | | Proximal:178, monophasic. Distal:Occluded. | | + + + + + | Procedure Note | + + | Obi, Rad Results In 02/27/2019 4:01 PM PDT LOWER EXTREMITY ARTERIAL EXAM WITH | [...] 21, monophasic.Distal: 18, | | monophasic.Peroneal Artery:Proximal:178, monophasic.Distal:Occluded.IMPRESSION:1. Left | | leg: Triphasic inflow with mid superficial femoral arteryocclusion and distal | | superficial femoral artery reconstitution withmonophasic outflow. Two vessel distal | | runoff of anterior and posteriortibial arteries.2. Right leg: Widely patent throughout | | with triphasic three-vesselrunoff.Signed by: Germania Morris HowardSign Date/Time: | | 02/27/2019 3:57 PM | [...] Date/Time: 02/27/2019 3:57 PM | + + + + + + + | Performing | Address | City/State/Zipcode | Phone Number | | Organization | | | | + + + + + | [facility] | [address] | [place] [address] | | + + + + + from Last 3 Months Insurance + +--------+ +------+-------+ + | Payer | Benefi | Subscriber | Type | Phone | Address | | | t Plan | ID | | | | | | / | | | | | | | Group | | | | | + +--------+ +------+-------+ + | MEDICAID | [employer] | [id number] | | | [address] | | | [place] | | | | [place], [place] | | | [place] | | | | [address] | | | [place] [facility] | | | | | + +--------+ [...] Self | [birth year] | Home: | [address] | | [address]/Fam | | 1965 | [phone] [place] | | | [place] | | | [address] | [phone] | + +--------+ +--------+ + +"
--- OUTSIDE RECORDS SUMMARY | ~2019-05-30 | XMS | Encounter Summary ---
Demographics + + + | Address | [address] | | | [place] [address] | + + + | Home Phone | [email or web address] | + + + | Preferred Language | Unknown | + + + | Marital Status | Unknown | + + + | Rastafari Affiliation | Unknown | + + + | Race | Unknown | + + + | Ethnic Group | Unknown | + + + Author + + + | Author | [facility] | | | and [place] | + + + | Organization | [facility] | | | and [...] Team Providers + +------+ + | Care Testing And Regulating Chief Name | Role | Phone | + [...] Provider Unknown | | | | | [place], [place] | [phone] | | | | | [address] | | | | | | [phone] | | | +--------+ + + + [...]
--- OUTSIDE RECORDS SUMMARY | ~2019-05-30 | XMS | Clinical Summary ---
Demographics + + + | Address | [address] | | | [place] [address] | + + + | Home Phone | | + + + | Preferred Language | Unknown | + + + | Marital Status | Single | + + + | Sabianism Affiliation | PRO | + + + | Race | White | + + + | Ethnic Group | Not or | + + + Author + + + | Organization | Unknown | + + + | Address | Unknown | + + + | Phone | Unavailable | + + + Care Team Providers + +------+ + | Care Appliance Servicer Name | Role | Phone | + +------+ + PCP | Unavailable | + +------+ + Source Comments ESTHER is fully live on both [facility] Ambulatory and [facility] InPatient.[facility] Allergies Not on File Medications Not on [...]
--- OUTSIDE RECORDS SUMMARY | ~2019-05-30 | XMS | Encounter Summary ---
Demographics + + + | Address | [address] | | | [place] [address] | + + + | Home Phone | [email or web address] | + + + | Preferred Language | Unknown | + + + | Marital Status | Unknown | + + + | Sabianism Affiliation | Unknown | + + + | Race | Unknown | + + + | Ethnic Group | Unknown | + + + Author + + + | Author | [facility] | | | and [place] | + + + | Organization | [facility] | | | [...] Team Providers + +------+ + | Care Meter Supervisor Name | Role | Phone | [...] | | | CORIN[address] | [address] [place] | | | | | [place], [place] | [address] | | | | | [address] | | | | | | [phone] | | | +--------+ + + + [...] | A Leonides: 0.51 m/s MV Dec Barton: 3.90 m/s2 MV DecT: 188.43 ms | [...] TR Vmax: 2.03 m/s | | | Party Plan Sales Host/Hostess: JEAN-PIERRE Authenticated by: KELSEY MORFIN MD Report | | | Date/Time: -- [id number]:15:51 | | + + + + + [...] cmLVPWd: 0.95 cmLVOT Area: | | 3.65 [id number] Diam: 2.15 cm%FS: 36.80 %EF(Teich): 66.28 %ESV(Teich): [...] | Index (A-L): 20.36 ml/m2LAAs A2C: 14.41 [id number] A-L A2C: 36.79 mlLALs A2C: 4.79 | | cmLAAs A4C: 14.19 [id number] A-L A4C: 36.70 mlLALs A4C: 4.65 cmRAAs: 11.64 | | [id number] A-L: 25.41 mlRAESV MOD: 24.38 mlRALs: 4.52 cmTAPSE: 2.19 cmAV maxPG: | | 4.31 mmHgAV meanP.23 mmHgAV Vmax: 1.03 m/Bhavesh Vmean: 0.69 m/Bhavesh VTI: 19.15 | | cmAVA Vmax: 3.29 cm2AVA (VTI): 3.10 [id number] maxP.51 mmHgLVOT meanP.70 | | mmHgLVSI Dopp: 32.50 ml/m2LVSV Dopp: 59.49 mlLVOT Vmax: 0.93 m/sLVOT Vmean: 0.59 | | m/sLVOT VTI: 16.27 cmMV A Leonides: 0.51 m/sMV Dec Barton: 3.90 m/s2MV DecT: 188.43 | | msMV E Leonides: 0.73 m/sMV E/A Ratio: 1.43MV PHT: 54.64 msMVA By PHT: 4.02 [id number] | | e': 0.08 m/sSeptal E/e': 8.69Lateral e': 0.09 m/sLateral E/e': 7.47RAP: 5 | | mmHgRVSP: 21.62 mmHgTR maxP.62 mmHgTR Vmax: 2.03 m/s Party Plan Sales Host/Hostess: | | DHAuthenticated by: INEZ EVERETTepaziza Date/Time: -- [id number]:15:51 | | IMPRESSION: 1. LV size, wall [...] A Leonides: 0.51 m/s | |MV Dec Barton: 3.90 m/s2 | |MV DecT: 188.43 ms [...] |TR Vmax: 2.03 m/s | | | |Party Plan Sales Host/Hostess: JEAN-PIERRE | |Authenticated by: KELSEY MORFIN MD | |Report Date/Time: -- [id number]_71:15:51 | | | |IMPRESSION: | |1. LV size, wall thickness and systolic function are normal, with an EF of 60%. | |2. The right ventricle is normal in size and function. | |3. There is a rounded, 1.1x1.0 cm echodense, contractile mass of undetermined etiology in t he basal posterolateral wall, seen in the apical 4 chamber view (image # 35). Consider a [facility] MRI for better evaluation. 4. No significant valvular | |abnormalities are noted. | + + documented in this encounter Visit Diagnoses Not on filedocumented in this encounter"
--- OUTSIDE RECORDS SUMMARY | ~2019-05-30 | XMS | Clinical Summary ---
Demographics + + + | Address | [address] | | | [place] [address] | + + + | Home Phone | | + + + | Preferred Language | Unknown | + + + | Marital Status | Single | + + + | Catholic Affiliation | Unknown | + + + | Race | Unknown | + + + | Ethnic Group | Unknown | + + + Author + + + | Author | [employer] (Historical as of | | | 03-01-19) | + + + | Organization | [facility] [employer] (Historical as of | | | 03-01-19) [...] Team Providers + +------+ + | Care Cop Breaker Name | Role | Phone | + [...] | | | | | | of [place] artery of | | | | | | left leg with | | | | | | intermit | | | | | | claudication ([facility]) | +--------+ + + + [...] of | | | | | | [place] artery of | | | | | | left leg with | | | | | | intermit | | | | | | claudication ([facility]) | | + +--------+ + [...] [facility] | [address] | [place] [address] | | + + + + + [...] +------+-------+ + | MEDICAID | EASTER | [id number] | | | [address] | | | N | | | | [place], [place] | | | [place] | | | | [address] | | | [employer] | | | | | + +--------+ [...] | reji | | | [address] | [address] | + +--------+ +--------+ + +"
--- OUTSIDE RECORDS SUMMARY | ~2019-05-30 | XMS | Encounter Summary ---
Demographics + + + | Address | [address] | | | [place] [address] | + + + | Home Phone | [email or web address][email or web address] | + + + | Preferred Language | Unknown | + + + | Marital Status | Unknown | + + + | Hindu Affiliation | Unknown | + + + | Race | Unknown | + + + | Ethnic Group | Unknown | + + + Author + + + | Author | [facility] | | | and [place] | + + + | Organization | [facility] | | | and [...] Team Providers + +------+ + | Care Retina Subspecialist Name | Role | Phone | + [...] Provider Unknown | | | | | [place], [place] | [phone] | | | | | [address] | | | | | | [phone] | | | +--------+ + + + [...]
--- OUTSIDE RECORDS SUMMARY | ~2019-05-30 | XMS | Encounter Summary ---
Demographics + + + | Address | [address] | | | [place] [address] | + + + | Home Phone | | + + + | Preferred Language | Unknown | + + + | Marital Status | Single | + + + | Alevism Affiliation | Unknown | + + + | Race | Unknown | + + + | Ethnic Group | Unknown | + + + Author + + + | Author | [employer] (Historical as of | | | 03-01-19) | + + + | Organization | [facility] [employer] (Historical as of | | | 03-01-19) [...] Team Providers + +------+ + | Care Plow And Boring Machine Tender Name | Role | Phone | + +------+ + | Edgard Meade MD | PCP | | + +------+ + Encounter Details +--------+ + + + + | Date | Type | Department | Care Team | Description | +--------+ + + + + | 02/27/ | Documentati | [facility] [place] [facility] | Yanni, | | | 2019 | on Only | Medical Center | MD [address] | | | | | Patient Access [id number] | [address] | | | | | [address] [place], | [place] [address] | | | | | [place] [address] | [phone] | | | | | [phone] | | | +--------+ + + + [...]
--- OUTSIDE RECORDS SUMMARY | ~2019-05-30 | XMS | Encounter Summary ---
Demographics + + + | Address | [address] | | | [place] [address] | + + + | Home Phone | [email or web address] | + + + | Preferred Language | Unknown | + + + | Marital Status | Unknown | + + + | Jew Affiliation | Unknown | + + + | Race | Unknown | + + + | Ethnic Group | Unknown | + + + Author + + + | Author | [facility] | | | and [place] | + + + | Organization | [facility] | | [...] Team Providers + +------+ + | Care Associate Professor Computer Science Name | Role | Phone | + +------+ + | Edgard Meade MD | PCP | | + +------+ + Encounter Details +--------+ + + + + | Date | Type | Department | Care Team | Description | +--------+ + + + + | 02/27/ | Hospital | [facility] | Conversion | Peripheral vascular | | 2019 | Encounter | [facility] | Transaction, | disease, unspecified | | | | ULTRASOUND [address] | Provider Unknown | ([facility]); Atheroscler | | | | [address] | | of kiana artery of | | | | [place], [place] | | left leg with | | | | [address] | Beau Liao, | intermit | | | | [phone] | [address] | claudication ([facility]) | | | | | AVE [place], [place] | | | | | | [address] | | | | | | | [...] | with triphasic three-vesselrunoff.Signed by: Germania Morris, [facility] Date/Time: | | 02/27/2019 3:57 PM | [...] unspecified | + + | 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
--- OUTSIDE RECORDS SUMMARY | ~2019-05-30 | XMS | Encounter Summary ---
Demographics + + + | Address | [address] | | | [place] [address] | + + + | Home Phone | | + + + | Preferred Language | Unknown | + + + | Marital Status | Single | + + + | Cheondoism Affiliation | PRO | + + + | Race | White | + + + | Ethnic Group | Not or | + + + Author + + + | Author | [facility] | + + + | Organization | [facility] | + + + | Address | Unknown | + + + | Phone | Unavailable | + + + Care Team Providers + +------+ + | Care Senior Sql Server Developer Name | Role | Phone | [...] [address] | | | | | [place] at | [place], [place] | | | | | [address] [address] [address] | [address] | | | | | [facility] [address] | [phone] | | | | | [place], [place] | | | | | | [address] | | | | | | [phone] | | | +--------+ + + + [...]
--- OUTSIDE RECORDS SUMMARY | ~2019-05-30 | XMS | Encounter Summary ---
Demographics + + + | Address | [address] | | | [place] [address] | + + + | Home Phone | | + + + | Preferred Language | Unknown | + + + | Marital Status | Single | + + + | Congregational Affiliation | Unknown | + + + | Race | Unknown | + + + | Ethnic Group | Unknown | + + + Author + + + | Author | [employer] (Historical as of | | | 03-01-19) | + + + | Organization | [facility] [employer] (Historical as of | | | [...] Team Providers + +------+ + | Care Mother Repairer Name | Role | Phone | + +------+ + | Edgard Meade MD | PCP | | + +------+ + Encounter Details +--------+ + + + + | Date | Type | Department | Care Team | Description | +--------+ + + + + | 02/27/ | Documentati | [facility] | Yanni, | | | 2019 | on Only | Medical Center | MD [address] | | | | | Patient Access [id number] | [address] | | | | | [address] [place], | [place] [address] | | | | | [place] [address] | [phone] | | | | | [phone] | | | +--------+ + + + [...]
--- OUTSIDE RECORDS SUMMARY | ~2019-05-30 | XMS | Encounter Summary ---
Demographics + + + | Address | [address] | | | [place] [address] | + + + | Home Phone | | + + + | Preferred Language | Unknown | + + + | Marital Status | Single | + + + | Anglican Affiliation | Unknown | + + + | Race | Unknown | + + + | Ethnic Group | Unknown | + + + Author + + + | Author | [employer] (Historical as of | | | 03-01-19) | + + + | Organization | [facility] (Historical as of | | | 03-01-19) [...] Team Providers + +------+ + | Care Train Controller Name | Role | Phone | + +------+ + | Edgard Meade MD | PCP | | + +------+ + Encounter Details +--------+ + + + + | Date | Type | Department | Care Team | Description | +--------+ + + + + | 02/27/ | Hospital | [facility] | [place], | Peripheral vascular | | 2019 | Encounter | [facility] | MD [address] | disease, unspecified | | | | [address]trasound [address] | (HCC); Atheroscler | | | | [address] | [place] [address] | of [place] artery of | | | | [place] [address] | [phone] | left leg with | | | | [phone] | | intermit | | | | | | claudication ([facility]) | +--------+ + + + + Social [...] of | | | | | | [place] artery of | | | | | | left leg with | | | | | | intermit | | | | | | claudication ([facility]) | | + +--------+ + [...] [facility] | [address] | [place] [address] | | + + + + + in this encounter Visit Diagnoses + + | Diagnosis | + + | Peripheral vascular disease, unspecified (HCC) | + + | Peripheral vascular disease, unspecified | + + | 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
--- OUTSIDE RECORDS SUMMARY | ~2019-05-30 | XMS | Encounter Summary ---
Demographics + + + | Address | [address] | | | [place] [address] | + + + | Home Phone | [email or web address] | + + + | Preferred Language | Unknown | + + + | Marital Status | Unknown | + + + | Advent Affiliation | Unknown | + + + | Race | Unknown | + + + | Ethnic Group | Unknown | + + + Author + + + | Author | [facility] | | | and [place] | + + + | Organization | [facility] | | | [...] Team Providers + +------+ + | Care Airdox Fitter Name | Role | Phone | + +------+ + PCP | Unavailable | + +------+ + Encounter Details +--------+ + + + + | Date | Type | Department | Care Team | Description | +--------+ + + + + | 05/14/ | Hospital | [facility] | Conversion | Mass of left cardiac | | 2018 | Encounter | [facility] | Transaction, | ventricle | | | | [address] | Provider Unknown | | | | | [place], [place] | [phone] | | | | | [address] | | | | | | [phone] | Edgard Meade MD | | | | | | [address] | | | | | | [place] | | | | | | [address] | | | | | | | [...] Adebayo Crocker - 02/26/2019 11:41 [facility] | | PPIMNDCW44/30/2018 1:18 PM HISTORY:53 years. Male. Evaluate left [...]
--- OUTSIDE RECORDS SUMMARY | ~2019-05-30 | XMS | Encounter Summary ---
Demographics + + + | Address | [address] | | | [place] [address] | + + + | Home Phone | | + + + | Preferred Language | Unknown | + + + | Marital Status | Single | + + + | Catholic Affiliation | Unknown | + + + | Race | Unknown | + + + | Ethnic Group | Unknown | + + + Author + + + | Author | [employer] (Historical as of | | | 03-01-19) | + + + | Organization | [facility] (Historical as of | | | 03-01-19) [...] Team Providers + +------+ + | Care Pipe Fitter Gas Pipe Name | Role | Phone | + +------+ + | Edgard Meade MD | PCP | | + +------+ + Encounter Details +--------+ + + + + | Date | Type | Department | Care Team | Description | +--------+ + + + + | 02/27/ | Hospital | [facility] | [place], | Peripheral vascular | | 2019 | Encounter | [facility] | MD [address] | disease, unspecified | | | | [address]tras[address] | (HCC); Atheroscler | | | | [address] | [place] [address] | of [place] ir[place] artery of | | | | [place] [address] | [phone] | left leg with | | | | [phone] | | intermit | | | | | | claudication ([facility]) | +--------+ + + + + Social [...] of | | | | | | [place] artery of | | | | | | left leg with | | | | | | intermit | | | | | | claudication ([facility]) | | + +--------+ + + + [...] [facility] | [address] | [place] [address] | | + + + + + in this encounter Visit Diagnoses + + | Diagnosis | + + | Peripheral vascular disease, unspecified (HCC) | + + | Peripheral vascular disease, unspecified | + + | 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
--- OUTSIDE RECORDS SUMMARY | ~2019-05-30 | XMS | Encounter Summary ---
Demographics + + + | Address | [address] | | | [place] [address] | + + + | Home Phone [...] Team Providers + +------+ + | Care Cfa Name | Role | Phone | + +------+ + PCP | Unavailable | + +------+ + Encounter Details +--------+ + + + + | Date | Type | Department | Care Team | Description | +--------+ + + + + | 10/20/ | Abstract | Neurology at | Clinic, Neurology | | | 2019 | | [facility] & | | | | | | [address]aling [address] | | | | | | Ruth Neida Mailcode: | | | | | | [facility] | | | | | | Health and Healing, | | | | | | [facility] | | | | | | [place], [place] | | | | | | [address] | | | | | | [phone] | | | +--------+ + + + [...]
--- OUTSIDE RECORDS SUMMARY | ~2019-05-30 | XMS | Encounter Summary ---
Demographics + + + | Address | [address] | | | [place] [address] | + + + | Home Phone | | + + + | Preferred Language | Unknown | + + + | Marital Status | Single | + + + | Sikh Affiliation | PRO | + + + | Race | White | + + + | Ethnic Group | Not or | + + + Author + + + | Author | [facility] | + + + | Organization | [facility] | + + + | Address | Unknown | + + + | Phone | Unavailable | + + + Care Team Providers + +------+ + | Care Hot Packer Name | Role | Phone | + +------+ + PCP | Unavailable | + +------+ + Encounter Details +--------+ + + + + | Date | Type | Department | Care Team | Description | +--------+ + + + + | 05/23/ | Abstract | Cardiology General | Unknown . | | | 2018 | | at [facility] [address] | | | | | | Faraz Carrasqu[place] Mailcode: | | | | | | [facility] [facility] | | | | | | Health and Healing, | | | | | | Building | | | | | | Floor [place], [place] | | | | | | [address] | | | | | | [phone] | | | +--------+ + + + [...]
--- OUTSIDE RECORDS SUMMARY | ~2019-05-30 | XMS | Clinical Summary ---
Demographics + + + | Address | [address] | | | [place] [address] | + + + | Home Phone | [email or web address] | + + + | Preferred Language | Unknown | + + + | Marital Status | Unknown | + + + | Episcopalian Affiliation | Unknown | + + + | Race | Unknown | + + + | Ethnic Group | Unknown | + + + Author + + + | Author | [facility] | | | and [place] | + + + | Organization | [facility] | | [...] Team Providers + +------+ + | Care Bulb Sorter Name | Role | Phone | + [...] | | 2019 | Encounter | | Transaction, | disease, unspecified | | | | | Provider Unknown | ([facility]); Atheroscler | | | | | [address], | of [place] artery of | | | | | [...]
--- OUTSIDE RECORDS SUMMARY | ~2019-05-30 | XMS | Clinical Summary ---
Demographics + + + | Address | [address] | | | [place] [address] | + + + | Home Phone | [email or web address] | + + + | Preferred Language | Unknown | + + + | Marital Status | Unknown | + + + | Worship Affiliation | Unknown | + + + | Race | Unknown | + + + | Ethnic Group | Unknown | + + + Author + + + | Author | [facility] | | | and [place] | + + + | Organization | [facility] | | | [...] Team Providers + +------+ + | Care Carry All Driver Name | Role | Phone | [...] | | | | Provider Unknown | ([facility]); Atheroscler | | | | | [address], | of [place] artery of | | | | | MD | left leg with | | | | | | intermit | | | | | | claudication ([facility]) | +--------+ + + + + from [...]
--- OUTSIDE RECORDS SUMMARY | ~2019-05-30 | XMS | Clinical Summary ---
Demographics + + + | Address | [address] | | | [place] [address] | + + + | Home Phone | | + + + | Preferred Language | Unknown | + + + | Marital Status | Single | + + + | Jew Affiliation | PRO | + + + | Race | White | + + + | Ethnic Group | Not or | + + + Author + + + | Organization | Unknown | + + + | Address | Unknown | + + + | Phone | Unavailable | + + + Care Team Providers + +------+ + | Care Shoe Cutter Name | Role | Phone | + +------+ + PCP | Unavailable | + +------+ + Source Comments ESTHER is fully live on both [facility] and [facility] Allergies Not on File Medications Not [...]
--- OUTSIDE RECORDS SUMMARY | ~2019-05-30 | XMS | Encounter Summary ---
Demographics + + + | Address | [address] | | | [place] [address] | + + + | Home Phone | [email or web address] | + + + | Preferred Language | Unknown | + + + | Marital Status | Unknown | + + + | Oriental Orthodox Affiliation | Unknown | + + + | Race | Unknown | + + + | Ethnic Group | Unknown | + + + Author + + + | Author | [facility] | | | and [place] | + + + | Organization | [facility] | | | [...] Team Providers + +------+ + | Care Bi Data Modeler Name | Role | Phone | + +------+ + | Edgard Meade MD | PCP | | + +------+ + Encounter Details +--------+ + + + + | Date | Type | Department | Care Team | Description | +--------+ + + + + | 02/27/ | Hospital | [facility] | Conversion | Peripheral vascular | | 2019 | Encounter | [facility] | Transaction, | disease, unspecified | | | | ULTRASOUND [address] | Provider Unknown | ([facility]); Atheroscler | | | | [address] | | of [place] artery of | | | | [place], [place] | | left leg with | | | | [address] | Beau Liao, | intermit | | | | [phone] | [address] | claudication ([facility]) | | | | | AVE [place], [place] | | | | | | [address] | | | | | | | [...] | with triphasic three-vesselrunoff.Signed by: Germania Morris, [facility] Date/Time: | | 02/27/2019 3:57 PM [...] unspecified | + + | 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
--- OUTSIDE RECORDS SUMMARY | ~2019-05-30 | XMS | Encounter Summary ---
Demographics + + + | Address | [address] | | | [place] [address] | + + + | Home Phone | | + + + | Preferred Language | Unknown | + + + | Marital Status | Single | + + + | Mandaeism Affiliation | PRO | + + + [...] Team Providers + +------+ + | Care Telecommunications Switch Technician Name | Role | Phone | + +------+ + PCP | Unavailable | + +------+ + Encounter Details +--------+ + + + + | Date | Type | Department | Care Team | Description | +--------+ + + + + | 09/27/ | MyChart | [facility] | Hetal Hilairo | RE: artemio del cast[place] | | 2009 | Encounter | Floor [address] | | | | | [address] | | | | | | Mailcode: [facility] | | | | | | [place], [place] | | | | | | [address] | | | | | | [phone] | | | +--------+ + + + [...]
[~2019-05-30 11:04] MED LIST changes: +ATORVASTATIN CA40 MG PO; +CLOPIDOGREL75 MG PO; +MELOXICAM15 MG PO; +METFORMIN HCL500 M1 PO; +NORCO 5-325 TA1 EACH PO
--- OUTSIDE RECORDS SUMMARY | 2019-05-30 11:06 | XMS ---
PreManage Notification: TESSA SABILLON Security Linux Network Engineer Events No recent Security Events currently on file CRITERIA MET - Group Notification - [facility] - Has Care Guidelines - [facility] - 2 Visits in 30 Days CARE PROVIDERS MARILIN MENDES Nurse Practitioner: Family 05/14/2019-Current PHONE: Unknown Jahaira has no Care Guidelines for this patient. Care History Medical/Surgical 05/14/2019 [facility] - Patient is currently established with [facility]. If patient is seen in the ED during business hours. Please contact [facility] at [facility]. Care Recommendation: This patient has had 5 or more Emergency Department visits in the last 12 months.\T\nbsp; Patient requires education on the scope and purpose of the ED as an acute care provider not a Primary Care Provider and should not be utilized for chronic conditions.\T\nbsp; These are guidelines and the provider should exercise clinical judgment when providing care. E.D. VISIT COUNT (12 MO.) 2 [facility] TOTAL 2 NOTE: Visits indicate total known visits. ED/UCC VISIT TRACKING (12 MO.) 05/30/2019 11:04 [facility] [place] TYPE: Emergency COMPLAINT: - ABD PAIN 05/13/2019 08:55 [facility] [place] TYPE: Emergency COMPLAINT: - LIVER PROBLEM DIAGNOSES: - Other group home (current) drug therapy - Obstruction of bile duct - Unspecified abdominal pain - Disease of pancreas, unspecified - halfway (current) use of oral hypoglycemic drugs - Personal history of nicotine dependence INPATIENT VISIT TRACKING (12 MO.) 05/13/2019 19:57 [facility] [place] TYPE: Surgical Services DIAGNOSES: - Other specified diseases of pancreas - Other problems related to lifestyle - Obstruction of bile duct - Abnormal weight loss [email or web address]
[2019-07-30] MEDS ORDERED: NORCO 10-325 T1 EACH PO (09:21)
[2019-07-30] MEDS ORDERED: CLOPIDOGREL75 MG PO (09:21)
[2019-07-30] MEDS ORDERED: MOBIC15 MG PO (09:22)
[2019-07-30] MEDS ORDERED: OMEPRAZOLE20 MG PO (09:24)
== END 2019-05-30 16:12 | disposition home or self-care (01) ==
LOC: ED 11:04
DX: R10.13 Epigastric pain (principal); Z87.891 Personal history of nicotine dependence; Z79.899 Other long term (current) drug therapy; Z79.84 Long term (current) use of oral hypoglycemic drugs
CPT/HCPCS: 74178; 80053; 85025; 99284-25; Q9967

== ENCOUNTER 2019-06-08 20:56 | Emergency (ER) | payer OTHER ==
[~2019-06-08] VITALS: Ht 170.2 cm; Wt 64.9 kg
--- OUTSIDE RECORDS SUMMARY | ~2019-06-08 | XMS | Clinical Summary ---
Demographics + + + | Address | [address] | | | [place] [address] | + + + | Home Phone | [email or web address] | + + + | Preferred Language | Unknown | + + + | Marital Status | Unknown | + + + | Methodist Affiliation | Unknown | + + + | Race | Unknown | + + + | Ethnic Group | Unknown | + + + Author + + + | Author | [facility] | | | [facility] [place] | + + + | Organization | [facility] | | | [facility] [place] | + + + | Address | Unknown | + + + | Phone | Unavailable | + + + Support + + +---------+ + | Name | Relationship | Address | Phone | + + +---------+ + | Pat Bagget | ECON | Unknown | | + + +---------+ + | Abiola Matamoros | ECON | Unknown | | + + +---------+ + Care Team Providers + +------+ + | Care Hand Tube Winder Name | Role | Phone | + +------+ + | Edgard Meade MD | PCP | | + +------+ + Allergies No Known Allergies Medications + + + +---------+------+------+-------+ | Medication | Sig | Dispensed | Refills | Star | End | Statu | | | | | | t | Date | s | | | | | | Date | | | + + + +---------+------+------+-------+ | aspirin 81 mg | Take 81 mg by mouth | | 0 | 02/1 | | Activ | | chewable tablet | daily with | | | 2/20 | | e | | | breakfast. | | | 19 | | | + + + +---------+------+------+-------+ | meloxicam (MOBIC) | Take 15 mg by mouth | | 0 | 02/1 | | Activ | | 15 mg tablet | daily. | | | 2/20 | | e | | | | | | 19 | | | + + + +---------+------+------+-------+ | pravastatin | Take 20 mg by mouth | | 0 | 02/1 | | Activ | | (PRAVACHOL) 20 mg | nightly. | | | 2/20 | | e | | tablet | | | | 19 | | | + + + +---------+------+------+-------+ Active Problems Not on file Family History + + +------+ + | Medical History | Relation | Name | Comments | + + +------+ + | Diabetes, NIDDM | Father | | | + + +------+ + | Diabetes, NIDDM | Mother | | | + + +------+ + + +------+ + + | Relation | Name | Status | Comments | + +------+ + + | Father | | Alive | | + +------+ + + | Father | | | | + +------+ + + | Mother | | | | + +------+ + + | Mother | | | | + +------+ + + Social History + +-------+ +--------+------+ | Tobacco Use | Types | Packs/Day | Years | Date | | | | | Used | | + +-------+ +--------+------+ | Current Every Day | | 1 | | | | Smoker | | | | | + +-------+ [...] | + + Last Filed Vital Signs + + + + + | Vital Sign | Reading | Time Taken | Comments | + + + + + | Blood Pressure | 128/75 | 08/27/2018 9:33 AM | | | | | PST | | + + + + + | Pulse | 71 | 08/27/2018 9:33 AM | | | | | PST | | + + + + + | Temperature | - | - | | + + + + + | Respiratory Rate | - | - | | + + + + + | Oxygen Saturation | - | - | | + + + + + | Inhaled Oxygen | - | - | | | Concentration | | | | + + + + + | Weight | 72.6 kg (160 lb) | 05/14/2018 12:26 PM | | | | | PDT | | + + + + + | Height | - | - | | + + + + + | Body Mass Index | - | - | | + + + + + Plan of Treatment + + + + + | Health Maintenance | Due Date | Last Done | Comments | + + + + + | Vaccine: | | | | | Dtap/Tdap/Td (1 - | 6 | | | | Tdap) | | | | + + + + + | Vaccine: Zoster (1 | | | | | of 2) | 7 | | | + + + + + | Vaccine: Influenza | | | | | (#1) | 9 | | | + + + + + Results Not on filefrom Last 3 Months"
--- OUTSIDE RECORDS SUMMARY | ~2019-06-08 | XMS | Clinical Summary ---
Demographics + + + | Address | [address] | | | [place] [address] | + + + | Home Phone | | + + + | Preferred Language | Unknown | + + + | Marital Status | Single | + + + | Moravian Affiliation | Unknown | + + + | Race | Unknown | + + + | Ethnic Group | Unknown | + + + Author + + + | Author | [email or web address] (Historical as of | | | 03-01-19) | + + + | Organization | [email or web address] (Historical as of | | | 03-01-19) | + + + | Address | Unknown | + + + | Phone | Unavailable | + + + Support + + +---------+ + | Name | Relationship | Address | Phone | + + +---------+ + | BettinaShaina | ECON | Unknown | | + + +---------+ + | Abiola Sabillon | ECON | Unknown | | + + +---------+ + Care Team Providers + +------+ + | Care Electric Meter Tester Helper Name | Role | Phone | + +------+ + | Edgard Meade MD | PP | | + +------+ + Allergies No Known Allergies Current Medications + + +-------+---------+------+------+-------+ | Prescription | Sig. | Disp. | Refills | Star | End | Statu | | | | | | t | Date | s | | | | | | Date | | | + + +-------+---------+------+------+-------+ | aspirin 81 MG | Take 81 mg by mouth | | | | | Activ | | chewable tablet | daily with | | | | | e | | | breakfast. | | | | | | + + +-------+---------+------+------+-------+ | meloxicam (MOBIC) | Take 15 mg by mouth | | | | | Activ | | 15 MG tablet | daily. | | | | | e | + + +-------+---------+------+------+-------+ | pravastatin | Take 20 mg by mouth | | | | | Activ | | (PRAVACHOL) 20 MG | nightly. | | | | | e | | tablet | | | | | | | + + +-------+---------+------+------+-------+ Active Problems Not on file Family History + + +------+ + | Medical History | Relation | Name | Comments | + + +------+ + | Diabetes type II | Father | | | + + +------+ + | Diabetes type II | Mother | | | + + [...] | | | + +-------+ +--------+------+ + +---+---+---+ | Smokeless Tobacco: | | | | | Never Used | | | | + +---+---+---+ + + | Tobacco Cessation: Ready to Quit: No | + + + + +---------+ + | Alcohol Use | Drinks/We | oz/Week | Comments | | | ek | | | + + +---------+ + | Yes | 6 Cans | 3.6 | | | | of beer | | | + + +---------+ + + + + | Sex Assigned at | Date Recorded | | | | + + + | Not on file | | + + + Last Filed Vital Signs + + + + | Vital Sign | Reading | Time Taken | + + + + | Blood Pressure | 128/75 | 08/27/2018 9:32 AM PST | + + + + | Pulse | 71 | 08/27/2018 9:32 AM PST | + + + + | Temperature | - | - | + + + + | Respiratory Rate | - | - | + + + + | Oxygen Saturation | 99% | 08/27/2018 9:32 AM PST | + + + + | Inhaled Oxygen | - | - | | Concentration | | | + + + + | Weight | 72.6 kg (160 lb) | 05/14/2018 12:26 PM PDT | + + + + | Height | - | - | + + + + | Body Mass Index | - | - | + + + + Plan of Treatment + + + + + | Health Maintenance | Due Date | Last Done | Comments | + + + + + | Vaccine: | | | | | Dtap/Tdap/Td (1 - | 6 | | | | Tdap) | | | | + + + + + | Vaccine: | | | | | Pneumococcal 19-64 | 6 | | | | (PPSV23 only) Medium | | | | | Risk (1 of 1 - | | | | | PPSV23) | | | | + + + + + | Colon Cancer | | | | | Screening | 7 | | | | (Colonoscopy) | | | | + + + + + | Vaccine: Zoster (1 | | | | | of 2) | 7 | | | + + + + + | Vaccine: Influenza | | | | | (#1) | 9 | | | + + + + + Results Not on filefrom Last 3 Months Insurance + +--------+ +------+-------+ + | Payer | Benefi | Subscriber | Type | Phone | Address | | | t Plan | ID | | | | | | / | | | | | | | Group | | | | | + +--------+ +------+-------+ + | MEDICAID | [employer] | [id number] | | | [address] | | | N | | | | [place], [place] | | | [place] | | | | [address] | | | BROKERAGE BRANCH MANAGER | | | | | + +--------+ +------+-------+ + + +--------+ +--------+ + + | Guarantor Name | Accoun | Relation to | Date | Phone | Billing Address | | | t Type | Patient | of | | | | | | | | | | + +--------+ +--------+ + + | TESSA SABILLON | Person | Self | [birth year] | Home: | [address] | | | [place] | | 1965 | [phone] | [place] | | | [place] | | | [phone] | [phone] | + +--------+ +--------+ + +"
--- OUTSIDE RECORDS SUMMARY | ~2019-06-08 | XMS | Encounter Summary ---
Demographics + + + | Address | [address] | | | [place] [address] | + + + | Home Phone | | + + + | Preferred Language | Unknown | + + + | Marital Status | Single | + + + | Pentecostal Affiliation | PRO | + + + | Race | White | + + + | Ethnic Group | Not or | + + + Author + + + | Author | [facility] | + + + | Organization | [facility] | + + + | Address | Unknown | + + + | Phone | Unavailable | + + + Care Team Providers + +------+ + | Care Ship Pilot Dispatcher Name | Role | Phone | + +------+ + PCP | Unavailable | + +------+ + Encounter Details +--------+ + + + + | Date | Type | Department | Care Team | Description | +--------+ + + + + | 09/27/ | MyChart | [facility] | Hetal Hilario | RE: artemio del castillo | | 2011 | Encounter | Floor [address] | | | | | [address] | | | | | | Mailcode: [facility]R | | | | | | [place], [place] | | | | | | [address] | | | | | | [phone] | | | +--------+ + + + [...]
--- OUTSIDE RECORDS SUMMARY | ~2019-06-08 | XMS | Clinical Summary ---
Demographics + + + | Address | [address] | | | [place] [address] | + + + | Home Phone | | + + + | Preferred Language | Unknown | + + + | Marital Status | Single | + + + | Congregational Affiliation | PRO | + + + | Race | White | + + + | Ethnic Group | Not or | + + + Author + + + | Organization | Unknown | + + + | Address | Unknown | + + + | Phone | Unavailable | + + + Care Team Providers + +------+ + | Care Dentist/Owner Name | Role | Phone | + +------+ + PCP | Unavailable | + +------+ + Source Comments ESTHER is fully live on both [facility] Amb[facility] and [facility] InPatient.[facility] Allergies Not on File Medications Not on [...]
--- OUTSIDE RECORDS SUMMARY | ~2019-06-08 | XMS | Encounter Summary ---
Demographics + + + | Address | [address] | | | [place] [address] | + + + | Home Phone | [email or web address] | + + + | Preferred Language | Unknown | + + + | Marital Status | Unknown | + + + | Church Affiliation | Unknown | + + + | Race | Unknown | + + + | Ethnic Group | Unknown | + + + Author + + + | Author | [facility] | | | [facility] [place] | + + + | Organization | [facility] | | | and [...] Team Providers + +------+ + | Care Garden Tractor Mechanic Name | Role | Phone | + +------+ + | Edgard Meade MD | PCP | | + +------+ + Encounter Details +--------+ + + + + | Date | Type | Department | Care Team | Description | +--------+ + + + + | 02/27/ | Hospital | [facility] | Conversion | Peripheral vascular | | 2019 | Encounter | [facility] | Transaction, | disease, unspecified | | | | ULTRASOUND [address] | Provider Unknown | ([facility]); Atheroscler | | | | [address] | | of [place] artery of | | | | [place], [place] | | left leg with | | | | [address] | Beau Liao, | intermit | | | | [phone] | [address] | claudication ([facility]) | | | | | [address]VE [place], [place] | | | | | | [address] | | | | | | | | +--------+ + + + [...] + + documented as of this encounter Medications at Time of Discharge + + + +---------+ + + | Medication | Sig | Dispensed | Refills | Start | End Date | | | | | | Date | | + + + +---------+ + + | aspirin 81 mg | Take 81 mg by mouth | | 0 | 08/27/19 | | | chewable tablet | daily with | | | 19 | | | | breakfast. | | | | | + + + +---------+ + + | meloxicam (MOBIC) | Take 15 mg by mouth | | 0 | 08/27/19 | | | 15 mg tablet | daily. | | | 19 | | + + + +---------+ + + | pravastatin | Take 20 mg by mouth | | 0 | 08/27/19 | | | (PRAVACHOL) 20 mg | nightly. | | | 19 | | | tablet | | | | | | + + + +---------+ + + documented as of this encounter Plan of Treatment Not on filedocumented as of this encounter Procedures + +--------+ + + + | Procedure Name | Priori | Date/Time | Associated Diagnosis | Comments | | | ty | | | | + +--------+ + + + | VAS LOWER EXTREMITY | Routin | 02/27/2019 | | Results for this | | ARTERIES BILATERAL | e | 10:31 AM | | procedure are in the | | | | PDT | | results section. | + +--------+ + + + documented in this encounter Results VAS Lower Extremity Arteries Bilateral (02/27/2019 10:31 AM PDT) + + | Specimen | + + | | + + + + + | Impressions | Performed At | + + + | 1. Left leg: Triphasic inflow with mid superficial femoral artery | | | occlusion and distal superficial femoral artery reconstitution with | | | monophasic outflow. Two vessel distal runoff of anterior and | | | posterior tibial arteries. 2. Right leg: Widely patent throughout | | | with triphasic three-vessel runoff. Signed by: Germania Morris Howard | | | Sign Date/Time: 02/27/2019 3:57 PM | | + + + + + + | Narrative | Performed At | + + + | LOWER EXTREMITY ARTERIAL EXAM WITH IMAGING CLINICAL INFORMATION: | | | Atherosclerosis with intermittent claudication COMPARISON: None | | | PROCEDURE: Using continuous wave Doppler, systolic pressure | | | measurements were recorded at the bilateral ankles and right brachial | | | artery and indices were calculated. Additionally, Color-encoded | | | duplex ultrasound was used to investigate the arteries of the lower | | | extremities. Using continuous wave Doppler, systolic pressure | | | measurements were recorded at the bilateral ankles and right brachial | | | artery and indices were calculated. Additionally, Color-encoded | | | duplex ultrasound was used to investigate the arteries of the | | | bilateral lower extremities. FINDINGS: Peak systolic velocity and | | | waveforms. All velocities in cm/sec. RIGHT Common Femoral Artery: | | | 207, Triphasic. Profunda Femoral Artery: 92, Triphasic. Femoral | | | Artery: Proximal: 100, Triphasic. Mid: 86, Triphasic. Distal: 106, | | | Triphasic. Popliteal Artery: Mid: 118, Triphasic. Anterior Tibial | | | Artery: Proximal: 49, Triphasic. Distal: 37, Triphasic. Posterior | | | Tibial Artery: Proximal: 54, Triphasic. Distal: 65, Triphasic. | | | Peroneal Artery: Proximal:37, Triphasic. Distal:34, Triphasic. | | | LEFT: Common Femoral Artery: 90, Triphasic. Profunda Femoral Artery: | | | 144, Triphasic. Femoral Artery: Proximal: 62, Triphasic. Mid: | | | Occluded. Distal: 21, reconstituted. Popliteal Artery: Mid: 23, | | | monophasic. Anterior Tibial Artery: Proximal: 32, Monophasic. | | | Distal: 22, monophasic. Posterior Tibial Artery: Proximal: 21, | | | monophasic. Distal: 18, monophasic. Peroneal Artery: Proximal:178, | | | monophasic. Distal:Occluded. | | + + + + + | Procedure Note | + + | Adebayo Crocker Conversion - 03/21/2019 9:55 AM PDT LOWER EXTREMITY ARTERIAL EXAM WITH | | IMAGINGCLINICAL INFORMATION:Atherosclerosis with intermittent | | claudicationCOMPARISON:NonePROCEDURE:Using continuous wave Doppler, systolic pressure | | measurements wererecorded at the bilateral ankles and right brachial artery and | | indiceswere calculated. Additionally, Color-encoded duplex ultrasound wasused to | | investigate the arteries of the lower extremities.Using continuous wave Doppler, | | systolic pressure measurements wererecorded at the bilateral ankles and right brachial | | artery and indiceswere calculated. Additionally, Color-encoded duplex ultrasound | | wasused to investigate the arteries of the bilateral lower extremities.FINDINGS:Peak | | systolic velocity and waveforms. All velocities in cm/sec.RIGHTCommon Femoral Artery: | | 207, Triphasic.Profunda Femoral Artery: 92, Triphasic.Femoral Artery:Proximal: 100, | | Triphasic.Mid: 86, Triphasic.Distal: 106, Triphasic.Popliteal Artery:Mid: 118, | | Triphasic.Anterior Tibial Artery:Proximal: 49, Triphasic.Distal: 37, Triphasic.Posterior | | Tibial Artery:Proximal: 54, Triphasic.Distal: 65, Triphasic.Peroneal | | Artery:Proximal:37, Triphasic.Distal:34, Triphasic.LEFT:Common Femoral Artery: 90, | | Triphasic.Profunda Femoral Artery: 144, Triphasic.Femoral Artery:Proximal: 62, | | Triphasic.Mid: Occluded.Distal: 21, reconstituted.Popliteal Artery:Mid: 23, | | monophasic.Anterior Tibial Artery:Proximal: 32, Monophasic.Distal: 22, | | monophasic.Posterior Tibial Artery:Proximal: 21, monophasic.Distal: 18, | | monophasic.Peroneal Artery:Proximal:178, monophasic.Distal:Occluded.IMPRESSION: 1. Left | | leg: Triphasic inflow with mid superficial femoral arteryocclusion and distal | | superficial femoral artery reconstitution withmonophasic outflow. Two vessel distal | | runoff of anterior and posteriortibial arteries.2. Right leg: Widely patent throughout | | with triphasic three-vesselrunoff.Signed by: Germania Morris, [facility] Date/Time: | | 02/27/2019 3:57 PM | |Anterior Tibial Artery: | |Proximal: 49, Triphasic. | |Distal: 37, Triphasic. | |Posterior Tibial Artery: | |Proximal: 54, Triphasic. | |Distal: 65, Triphasic. | |Peroneal Artery: | |Proximal:37, Triphasic. | |Distal:34, Triphasic. | |LEFT: | |Common Femoral Artery: 90, Triphasic. | |Profunda Femoral Artery: 144, Triphasic. | |Femoral Artery: | |Proximal: 62, Triphasic. | |Mid: Occluded. | |Distal: 21, reconstituted. | |Popliteal Artery: | |Mid: 23, monophasic. | |Anterior Tibial Artery: | |Proximal: 32, Monophasic. | |Distal: 22, monophasic. | |Posterior Tibial Artery: | |Proximal: 21, monophasic. | |Distal: 18, monophasic. | |Peroneal Artery: | |Proximal:178, monophasic. | |Distal:Occluded. | |IMPRESSION: | |1. Left leg: Triphasic inflow with mid superficial femoral artery | |occlusion and distal superficial femoral artery reconstitution with | |monophasic outflow. Two vessel distal runoff of anterior and posterior | |tibial arteries. | |2. Right leg: Widely patent throughout with triphasic three-vessel | |runoff. 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
--- OUTSIDE RECORDS SUMMARY | ~2019-06-08 | XMS | Encounter Summary ---
Demographics + + + | Address | [address] | | | [place] [address] | + + + | Home Phone | | + + + | Preferred Language | Unknown | + + + | Marital Status | Single | + + + | Gnosticist Affiliation | PRO | + + + | Race | White | + + + | Ethnic Group | Not or | + + + Author + + + | Author | [facility] | + + + | Organization | [facility] | + + + | Address | Unknown | + + + | Phone | Unavailable | + + + Care Team Providers + +------+ + | Care Demolition Crane Operator Name | Role | Phone | + +------+ + PCP | Unavailable | + +------+ + Encounter Details +--------+ + + + + | Date | Type | Department | Care Team | Description | +--------+ + + + + | 09/27/ | MyChart | [facility] at [facility] | Hetal Hilario | RE: artemio del castillo | | 2011 | Encounter | Floor [address] | | | | | [address] | | | | | | Mailcode: [facility] CDR | | | | | | [place], [place] | | | | | | [address] | | | | | | [phone] | | | +--------+ + + + [...]
--- OUTSIDE RECORDS SUMMARY | ~2019-06-08 | XMS | Encounter Summary ---
Demographics + + + | Address | [address] | | | [place] [address] | + + + | Home Phone | | + + + | Preferred Language | Unknown | + + + | Marital Status | Single | + + + | Baptist Affiliation | PRO | + + + | Race | White | + + + | Ethnic Group | Not or | + + + Author + + + | Author | [facility] | + + + | Organization | [facility] | + + + | Address | Unknown | + + + | Phone | Unavailable | + + + Care Team Providers + +------+ + | Care Software Deployment Engineer Name | Role | Phone | + +------+ + PCP | Unavailable | + +------+ + Encounter Details +--------+ + + + + | Date | Type | Department | Care Team | Description | +--------+ + + + + | 10/20/ | Abstract | Neurology at | Clinic, Neurology | | | 2019 | | [facility] & | | | | | | [facility] | | | | | | Ruth [address]ida Mailcode: | | | | | | [facility] | | | | | | Health and Healing, | | | | | | [facility] | | | | | | [place], [place] | | | | | | [address] | | | | | | [phone] | | | +--------+ + + + [...]
--- OUTSIDE RECORDS SUMMARY | ~2019-06-08 | XMS | Encounter Summary ---
Demographics + + + | Address | [address] | | | [place] [address] | + + + | Home Phone | [email or web address] | + + + | Preferred Language | Unknown | + + + | Marital Status | Unknown | + + + | Hindu Affiliation | Unknown | + + + | Race | Unknown | + + + | Ethnic Group | Unknown | + + + Author + + + | Author | [facility] | | | and [place] | + + + | Organization | [facility] | | | and [...] Team Providers + +------+ + | Care Motor Vehicle Or Caravan Salesperson Name | Role | Phone | + +------+ + | Edgard Meade MD | PCP | | + +------+ + Encounter Details +--------+ + + + + | Date | Type | Department | Care Team | Description | +--------+ + + + + | 08/27/ | Orders Only | [facility] | Conversion | | | 2019 | | CONVERSION [address] | Transaction, | | | | | [address] | Provider Unknown | | | | | [place], [place] | [phone] | | | | | [address] | | | | | | [phone] | | | +--------+ + + + [...]
--- OUTSIDE RECORDS SUMMARY | ~2019-06-08 | XMS | Clinical Summary ---
Demographics + + + | Address | [address] | | | [place] [address] | + + + | Home Phone | | + + + | Preferred Language | Unknown | + + + | Marital Status | Single | + + + | Church Affiliation | Unknown | + + + | Race | Unknown | + + + | Ethnic Group | Unknown | + + + Author + + + | Author | [facility] (Historical as of | | | 03-01-19) | + + + | Organization | [facility] (Historical as of | | | 03-01-19) [...] Team Providers + +------+ + | Care Thermodynamicist Name | Role | Phone | + [...] +------+-------+ + | MEDICAID | [employer] | [id number] | | | [address] | | | N | | | | [place], [place] | | | [place] | | | | [address] | | | MAINTENANCE SUPERVISOR MECHANICAL | | | | | + +--------+ [...] | | al/Blas | | 1965 | [phone] [place] | | | [place] | | | [phone] | [address] | + +--------+ +--------+ + +"
--- OUTSIDE RECORDS SUMMARY | ~2019-06-08 | XMS | Encounter Summary ---
Demographics + + + | Address | [address] | | | [place] [address] | + + + | Home Phone | [email or web address] | + + + | Preferred Language | Unknown | + + + | Marital Status | Unknown | + + + | Pentecostalism Affiliation | Unknown | + + + | Race | Unknown | + + + | Ethnic Group | Unknown | + + + Author + + + | Author | [facility] | | | and [place] | + + + | Organization | [facility] | | | [...] Team Providers + +------+ + | Care Fiscal Analyst Name | Role | Phone | + +------+ + PCP | Unavailable | + +------+ + Encounter Details +--------+ + + + + | Date | Type | Department | Care Team | Description | +--------+ + + + + | 05/14/ | Hospital | [facility] | Conversion | Mass of left cardiac | | 2018 | Encounter | [facility] | Transaction, | ventricle | | | | [address] | Provider Unknown | | | | | [place], [place] | [phone] | | | | | [address] | | | | | | [phone] | Edgard Meade MD | | | | | | [address] | | | | | | [place] | | | | | | [id number] | | | | | | | [...] Adebayo Crocker - 02/26/2019 11:41 [facility] | | [id number]/30/2018 1:18 PM HISTORY:53 years. Male. Evaluate left [...]
--- OUTSIDE RECORDS SUMMARY | ~2019-06-08 | XMS | Encounter Summary ---
Demographics + + + | Address | [address] | | | [place] [address] | + + + | Home Phone | [email or web address] | + + + | Preferred Language | Unknown | + + + | Marital Status | Unknown | + + + | Baptism Affiliation | Unknown | + + + | Race | Unknown | + + + | Ethnic Group | Unknown | + + + Author + + + | Author | [facility] | | | and [place] | + + + | Organization | [facility] | | | [...] Team Providers + +------+ + | Care Roundhouse Supervisor Name | Role | Phone | + +------+ + | Edgard Meade MD | PCP | | + +------+ + Encounter Details +--------+ + + + + | Date | Type | Department | Care Team | Description | +--------+ + + + + | 04/23/ | Orders Only | [facility] | Egdard Meade, | | | 2017 | | CONVERSION [address] | MD [address] | | | | | [address] | [address] [place] | | | | | [place], [place] | [address] | | | | | [address] | | | | | | [phone] | | | +--------+ + + + [...] 1965 | | | Performing Physician: KELSEY MORFIN MD | | | | | | [...] | A Leonides: 0.51 m/s MV Dec [place]: 3.90 m/s2 MV DecT: 188.43 ms | [...] TR Vmax: 2.03 m/s | | | Treatment Plant Operator: JEAN-PIERRE Authenticated by: KELSEY MORFIN MD Report | | | Date/Time: -- 90_[id number]_85:15:51 | | + + + + + [...] cmLVPWd: 0.95 cmLVOT Area: | | 3.65 [id number] Diam: 2.15 cm%FS: 36.80 %EF(Teich): 66.28 %ESV(Teich): [...] | Index (A-L): 20.36 ml/m2LAAs A2C: 14.41 [id number] A-L A2C: 36.79 mlLALs A2C: 4.79 | | cmLAAs A4C: 14.19 el3WWHYF A-L A4C: 36.70 mlLALs A4C: 4.65 cmRAAs: 11.64 | | [id number] A-L: 25.41 mlRAESV MOD: 24.38 mlRALs: 4.52 cmTAPSE: 2.19 cmAV maxPG: | | 4.31 mmHgAV meanP.23 mmHgAV Vmax: 1.03 m/Bhavesh Vmean: 0.69 m/Bhavesh VTI: 19.15 | | cmAVA Vmax: 3.29 cm2AVA (VTI): 3.10 ha1VLYC maxP.51 mmHgLVOT meanP.70 | | mmHgLVSI Dopp: 32.50 ml/m2LVSV Dopp: 59.49 mlLVOT Vmax: 0.93 m/sLVOT Vmean: 0.59 | | m/sLVOT VTI: 16.27 cmMV A Leonides: 0.51 m/sMV Dec [place]: 3.90 m/s2MV DecT: 188.43 | | msMV E Leonides: 0.73 m/sMV E/A Ratio: 1.43MV PHT: 54.64 msMVA By PHT: 4.02 [id number] | | e': 0.08 m/sSeptal E/e': 8.69Lateral e': 0.09 m/sLateral E/e': 7.47RAP: 5 | | mmHgRVSP: 21.62 mmHgTR maxP.62 mmHgTR Vmax: 2.03 m/s Treatment Plant Operator: | | DHAuthenticated by: INEZ EVERETTepaziza Date/Time: -- [id number]:15:51 | | IMPRESSION: 1. LV size, wall [...] A Leonides: 0.51 m/s | |MV Dec [place]: 3.90 m/s2 | |MV DecT: 188.43 ms [...] |TR Vmax: 2.03 m/s | | | |Treatment Plant Operator: JEAN-PIERRE | |Authenticated by: KELSEY MORFIN MD | |Report Date/Time: -- [id number]:15:51 | | | |IMPRESSION: | |1. LV size, wall thickness and systolic function are normal, with an EF of 60%. | |2. The right ventricle is normal in size and function. | |3. There is a rounded, 1.1x1.0 cm echodense, contractile mass of undetermined etiology in t he basal posterolateral wall, seen in the apical 4 chamber view (image # 35). Consider a [facility] MRI for better evaluation. 4. No significant valvular | |abnormalities are noted. | + + documented in this encounter Visit Diagnoses Not on filedocumented in this encounter"
--- OUTSIDE RECORDS SUMMARY | ~2019-06-08 | XMS | Clinical Summary ---
Demographics + + + | Address | [address] | | | [place] [address] | + + + | Home Phone | [email or web address] | + + + | Preferred Language | Unknown | + + + | Marital Status | Unknown | + + + | Jehovah'S Witness Affiliation | Unknown | + + + [...] Team Providers + +------+ + | Care Four H Agent Name | Role | Phone | + [...]
--- OUTSIDE RECORDS SUMMARY | ~2019-06-08 | XMS | Encounter Summary ---
Demographics + + + | Address | [address] | | | [place] [address] | + + + | Home Phone | | + + + | Preferred Language | Unknown | + + + | Marital Status | Single | + + + | Restorationism Affiliation | PRO | + + + | Race | White | + + + | Ethnic Group | Not or | + + + Author + + + | Author | [facility] | + + + | Organization | [facility] | + + + | Address | Unknown | + + + | Phone | Unavailable | + + + Care Team Providers + +------+ + | Care Field Account Director Name | Role | Phone | + +------+ + PCP | Unavailable | + +------+ + Encounter Details +--------+ + + + + | Date | Type | Department | Care Team | Description | +--------+ + + + + | 05/23/ | Abstract | Cardiology General | Unknown . | | | 2018 | | at [facility] [address] | | | | | | Faraz Carrasquillo Mailcode: | | | | | | [address] | | | | | | Health and Healing, | | | | | | Building | | | | | | floor [place], [place] | | | | | | [address] | | | | | | [phone] | | | +--------+ + + + [...]
--- OUTSIDE RECORDS SUMMARY | ~2019-06-08 | XMS | Encounter Summary ---
Demographics + + + | Address | [address] | | | [place] [address] | + + + | Home Phone | [email or web address] | + + + | Preferred Language | Unknown | + + + | Marital Status | Unknown | + + + | Quaker Affiliation | Unknown | + + + | Race | Unknown | + + + | Ethnic Group | Unknown | + + + Author + + + | Author | [facility] | | | and [place] | + + + | Organization | [facility] | | | [...] Team Providers + +------+ + | Care Machinist Class B Name | Role | Phone | + +------+ + PCP | Unavailable | + +------+ + Encounter Details +--------+ + + + + | Date | Type | Department | Care Team | Description | +--------+ + + + + | 05/14/ | Hospital | [facility] | Conversion | Mass of left cardiac | | 2018 | Encounter | [facility] | Transaction, | ventricle | | | | [address] | Provider Unknown | | | | | [place], [place] | [phone] | | | | | [address] | | | | | | [phone] | Edgard Meade MD | | | | | | [address] | | | | | | [place] | | | | | | [address] | | | | | | | [...] Adebayo Crocker - 02/26/2019 11:41 [facility] | | [id number]/30/2018 1:18 PM HISTORY:53 years. Male. Evaluate left [...]
--- OUTSIDE RECORDS SUMMARY | ~2019-06-08 | XMS | Encounter Summary ---
Demographics + + + | Address | [address] | | | [place] [address] | + + + | Home Phone | | + + + | Preferred Language | Unknown | + + + | Marital Status | Single | + + + | Church Affiliation | PRO | + + + [...] Team Providers + +------+ + | Care Surgical Supervisor Name | Role | Phone | + +------+ + PCP | Unavailable | + +------+ + Encounter Details +--------+ + + + + | Date | Type | Department | Care Team | Description | +--------+ + + + + | 10/20/ | Abstract | Neurology at | Clinic, Neurology | | | 2019 | | [facility] & | | | | | | Healing [address] | | | | | | Ruth [address] Mailcode: | | | | | | [facility] | | | | | | Health and Healing, | | | | | | [facility] | | | | | | [place], [place] | | | | | | [address] | | | | | | [phone] | | | +--------+ + + + [...]
--- OUTSIDE RECORDS SUMMARY | ~2019-06-08 | XMS | Clinical Summary ---
Demographics + + + | Address | [address] | | | [place] [address] | + + + | Home Phone | | + + + | Preferred Language | Unknown | + + + | Marital Status | Single | + + + | Mu-Ism Affiliation | PRO | + + + | Race | White | + + + | Ethnic Group | Not or | + + + Author + + + | Organization | Unknown | + + + | Address | Unknown | + + + | Phone | Unavailable | + + + Care Team Providers + +------+ + | Care Police Stenographer Name | Role | Phone | + +------+ + PCP | Unavailable | + +------+ + Source Comments ESTHER is fully live on both [facility] and [facility] Allergies Not on File Medications [...]
--- OUTSIDE RECORDS SUMMARY | ~2019-06-08 | XMS | Encounter Summary ---
Demographics + + + | Address | [address] | | | [place] [address] | + + + | Home Phone | | + + + | Preferred Language | Unknown | + + + | Marital Status | Single | + + + | Samaritan Affiliation | PRO | + + + | Race | White | + + + | Ethnic Group | Not or | + + + Author + + + | Author | [facility] | + + + | Organization | [facility] | + + + | Address | Unknown | + + + | Phone | Unavailable | + + + Care Team Providers + +------+ + | Care Creative Technologist Name | Role | Phone | + +------+ + PCP | Unavailable | + +------+ + Encounter Details +--------+ + + + + | Date | Type | Department | Care Team | Description | +--------+ + + + + | 05/23/ | Abstract | Cardiology General | Unknown . | | | 2018 | | at [facility] [address] | | | | | | Faraz Carrasquillo Mailcode: | | | | | | [address] | | | | | | Health and Healing, | | | | | | Building | | | | | | floor [place], [place] | | | | | | [address] | | | | | | [phone] | | | +--------+ + + + [...]
--- OUTSIDE RECORDS SUMMARY | ~2019-06-08 | XMS | Encounter Summary ---
Demographics + + + | Address | [address] | | | [place] [address] | + + + | Home Phone | | + + + | Preferred Language | Unknown | + + + | Marital Status | Single | + + + | Christian Affiliation | PRO | + + + | Race | White | + + + | Ethnic Group | Not or | + + + Author + + + | Author | [facility] | + + + | Organization | [facility] | + + + | Address | Unknown | + + + | Phone | Unavailable | + + + Care Team Providers + +------+ + | Care Full Roll Inspector Name | Role | Phone | + [...] Faraz Carrasquillo | | | | | [place] at | [place], [place] | | | | | [address] | [address] | | | | | [facility] [address] | [phone] | | | | | [place], [place] | | | | | | [address] | | | | | | [phone] | | | +--------+ + + + [...]
--- OUTSIDE RECORDS SUMMARY | ~2019-06-08 | XMS | Encounter Summary ---
Demographics + + + | Address | [address] | | | [place] [address] | + + + | Home Phone | [email or web address] | + + + | Preferred Language | Unknown | + + + | Marital Status | Unknown | + + + | Yazdanism Affiliation | Unknown | + + + | Race | Unknown | + + + | Ethnic Group | Unknown | + + + Author + + + | Author | [facility] | | | and [place] | + + + | Organization | [facility] | | [...] Team Providers + +------+ + | Care Traffic Officer Name | Role | Phone | + [...] | | | [address] | [address] [place] | | | | | [place], [place] | [address] | | | | | [address] | | | | | | [phone] | | | +--------+ + + + [...] TR Vmax: 2.03 m/s | | | Watch Supervisor: JEAN-PIERRE Authenticated by: KELSEY MORFIN MD Report | | | Date/Time: -- 17_[id number]_89:15:51 | | + + + + + [...] cmLVPWd: 0.95 cmLVOT Area: | | 3.65 [id number] Diam: 2.15 cm%FS: 36.80 %EF(Teich): 66.28 %ESV(Teich): [...] | Index (A-L): 20.36 ml/m2LAAs A2C: 14.41 [id number] A-L A2C: 36.79 mlLALs A2C: 4.79 | | cmLAAs A4C: 14.19 wf2NQTQH A-L A4C: 36.70 mlLALs A4C: 4.65 cmRAAs: 11.64 | | vl4BCHQD A-L: 25.41 mlRAESV MOD: 24.38 mlRALs: 4.52 cmTAPSE: 2.19 cmAV maxPG: | | 4.31 mmHgAV meanP.23 mmHgAV Vmax: 1.03 m/Bhavesh Vmean: 0.69 m/Bhavesh VTI: 19.15 | | cmAVA Vmax: 3.29 cm2AVA (VTI): 3.10 [id number] maxP.51 mmHgLVOT meanP.70 | | mmHgLVSI Dopp: 32.50 ml/m2LVSV Dopp: 59.49 mlLVOT Vmax: 0.93 m/sLVOT Vmean: 0.59 | | m/sLVOT VTI: 16.27 cmMV A Leonides: 0.51 m/sMV Dec [place]: 3.90 m/s2MV DecT: 188.43 | | msMV E Leonides: 0.73 m/sMV E/A Ratio: 1.43MV PHT: 54.64 msMVA By PHT: 4.02 [id number] | | e': 0.08 m/sSeptal E/e': 8.69Lateral e': 0.09 m/sLateral E/e': 7.47RAP: 5 | | mmHgRVSP: 21.62 mmHgTR maxP.62 mmHgTR Vmax: 2.03 m/s Watch Supervisor: | | DHAuthenticated by: INEZ EVERETTepaziza Date/Time: -- [id number]:15:51 | | IMPRESSION: 1. LV size, wall [...] |TR Vmax: 2.03 m/s | | | |Watch Supervisor: JEAN-PIERRE | |Authenticated by: KELSEY MORFIN MD | |Report Date/Time: -- [id number]_48:15:51 | | | |IMPRESSION: | |1. LV size, wall thickness and systolic function are normal, with an EF of 60%. | |2. The right ventricle is normal in size and function. | |3. There is a rounded, 1.1x1.0 cm echodense, contractile mass of undetermined etiology in t he basal posterolateral wall, seen in the apical 4 chamber view (image # 35). Consider a [facility] MRI for better evaluation. 4. No significant valvular | |abnormalities are noted. | + + documented in this encounter Visit Diagnoses Not on filedocumented in this encounter"
--- OUTSIDE RECORDS SUMMARY | ~2019-06-08 | XMS | Encounter Summary ---
Demographics + + + | Address | [address] | | | [place] [address] | + + + | Home Phone | [email or web address] | + + + | Preferred Language | Unknown | + + + | Marital Status | Unknown | + + + | Voodoo Affiliation | Unknown | + + + | Race | Unknown | + + + | Ethnic Group | Unknown | + + + Author + + + | Author | [facility] | | | and [place] | + + + | Organization | [facility] | | | [...] Team Providers + +------+ + | Care Asbestos Worker Helper Name | Role | Phone | [...] Provider Unknown | | | | | [place], [place] | [phone] | | | | | [address] | | | | | | [phone] | | | +--------+ + + + [...]
--- OUTSIDE RECORDS SUMMARY | ~2019-06-08 | XMS | Encounter Summary ---
Demographics + + + | Address | [address] | | | [place] [address] | + + + | Home Phone | [email or web address] | + + + | Preferred Language | Unknown | + + + | Marital Status | Unknown | + + + | Scientology Affiliation | Unknown | + + + | Race | Unknown | + + + | Ethnic Group | Unknown | + + + Author + + + | Author | [facility] | | | and [place] | + + + | Organization | [facility] | | [...] Team Providers + +------+ + | Care Bioinformatics Computer Scientist Name | Role | Phone | + +------+ + | Edgard Meade MD | PCP | | + +------+ + Encounter Details +--------+ + + + + | Date | Type | Department | Care Team | Description | +--------+ + + + + | 02/27/ | Hospital | [facility] | Conversion | Peripheral vascular | | 2019 | Encounter | [facility] | Transaction, | disease, unspecified | | | | ULTRASOUND [address] | Provider Unknown | ([facility]); Atheroscler | | | | [address] | | of qagan tayagungin artery of | | | | [place], [place] | | left leg with | | | | [address] | Beau Liao, | intermit | | | | [phone] | [address] | claudication ([facility]) | | | | | [address]VE [place], [place] | | | | | | [address] | | | | | | | [...] | with triphasic three-vesselrunoff.Signed by: Germania Morris, [facility] Date/Time: | | 02/27/2019 3:57 PM [...] unspecified | + + | 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
--- OUTSIDE RECORDS SUMMARY | ~2019-06-08 | XMS | Encounter Summary ---
Demographics + + + | Address | [address] | | | [place] [address] | + + + | Home Phone | | + + + | Preferred Language | Unknown | + + + | Marital Status | Single | + + + | Mormon Affiliation | PRO | + + + [...] Team Providers + +------+ + | Care Catering Administrative Assistant Name | Role | Phone | [...] Far[address] Carrasquillo | | | | | [place] at | [place], [place] | | | | | [address] | [address] | | | | | [facility] [address] | [phone] | | | | | [place], [place] | | | | | | [address] | | | | | | [phone] | | | +--------+ + + + [...]
--- OUTSIDE RECORDS SUMMARY | 2019-06-08 20:58 | XMS ---
PreManage Notification: TESSA SABILLON Security Procurement Inspector Events No recent Security Events currently on file CRITERIA MET - Group Notification - [facility] - Has Care Guidelines - PDMP - [facility] - 2 Visits in 30 Days CARE PROVIDERS MARILIN MENDES Nurse Practitioner: Family 05/14/2019-Current PHONE: Unknown Jahaira has no Care Guidelines for this patient. Care History Medical/Surgical 05/14/2019 [facility] - Patient is currently established with [facility]. If patient is seen in the ED during business hours. Please contact [facility] at [facility]. Care Recommendation: This patient has had 5 [...] providing care. E.D. VISIT COUNT (12 MO.) 3 [facility]. TOTAL 3 NOTE: Visits indicate total known visits. ED/UCC VISIT TRACKING (12 MO.) 06/08/2019 20:56 [facility] [place] TYPE: Emergency COMPLAINT: - POSS FEVER 05/30/2019 11:04 [facility] [place] TYPE: Emergency COMPLAINT: - ABD PAIN DIAGNOSES: - senior living (current) use of oral hypoglycemic drugs - Personal history of nicotine dependence - Unspecified abdominal pain - Epigastric pain - Other assisted (current) drug therapy 05/13/2019 08:[facility] [place] TYPE: Emergency COMPLAINT: - LIVER PROBLEM DIAGNOSES: - Other terminal operations supervisor (current) drug therapy - Obstruction of bile duct - Unspecified abdominal pain - Disease of pancreas, unspecified - senior living (current) use of oral hypoglycemic drugs - Personal history of nicotine dependence INPATIENT VISIT TRACKING (12 MO.) 05/13/2019 19:57 [facility] [place] TYPE: Surgical Services DIAGNOSES: - Other specified diseases of pancreas - Other problems related to lifestyle - Obstruction of bile duct - Abnormal weight loss [id number]
== END 2019-06-08 23:21 | disposition home or self-care (01) ==
LOC: ED 20:56
DX: K86.89 Other specified diseases of pancreas (principal); E11.9 Type 2 diabetes mellitus without complications; F17.200 Nicotine dependence, unspecified, uncomplicated; Z79.899 Other long term (current) drug therapy; Z79.84 Long term (current) use of oral hypoglycemic drugs
CPT/HCPCS: 71046; 80053; 81001; 83605; 83690; 85025; 87502; 99284-25

== ENCOUNTER 2019-08-02 04:15 | Inpatient (IN) | payer OTHER ==
[~2019-08-02] VITALS: Ht 170.2 cm; Wt 60.0 kg
[~2019-08-02 04:15] MED LIST changes: +MOBIC15 MG PO; +NORCO 10-325 T1 EACH PO; +OMEPRAZOLE20 MG PO
--- OUTSIDE RECORDS SUMMARY | 2019-08-02 04:18 | XMS ---
PreManage Notification: TESSA SABILLON Security Shoe Repair Supervisor Events No recent Security Events currently on file CRITERIA MET - Group Notification - [facility] - Has Care Guidelines - PDMP CARE PROVIDERS NORMAN MENDES Nurse Practitioner: Family 05/14/2019-Current PHONE: Unknown Jahaira has no Care Guidelines for this patient. Care History Medical/Surgical 06/10/2019 [facility] Patient used ED as advised by PCP Norman Mendes for pancreatic pain.\T\nbsp; Pt stated that he is now seeing cancer clinic in [place], [place]. 05/14/2019 [facility] - Patient is currently established with [facility]. If patient is seen in the ED during business hours. Please contact CHWs at [facility]. Care Recommendation: This patient has had 5 [...] providing care. E.D. VISIT COUNT (12 MO.) [address] [facility] TOTAL 4 NOTE: Visits indicate total known visits. ED/UCC VISIT TRACKING (12 MO.) 08/02/2019 04:16 [facility] [place] TYPE: Emergency COMPLAINT: - ABD PAIN 06/08/2019 20:56 [facility] [place] TYPE: Emergency COMPLAINT: - POSS FEVER DIAGNOSES: - [facility] (current[facility] drug therapy - Other specified diseases of pancreas - 1 Type 2 diabetes mellitus without complications - Upper abdominal pain, unspecified - Nicotine dependence, unspecified, uncomplicated - rn long term care (current) use of oral hypoglycemic drugs 05/30/2019 11:04 [facility] [place] TYPE: Emergency COMPLAINT: - ABD PAIN DIAGNOSES: - rn long term care (current) use of oral hypoglycemic drugs - Personal history of nicotine dependence - Unspecified abdominal pain - Epigastric pain - Other intermediate accountant (current) drug therapy 05/13/2019 08:55 [facility] [place] TYPE: Emergency COMPLAINT: - LIVER PROBLEM DIAGNOSES: - Other intermediate accountant (current) drug therapy - Obstruction of bile duct - Unspecified abdominal pain - Disease of pancreas, unspecified - half-way (current) use of oral hypoglycemic drugs - Personal history of nicotine dependence INPATIENT VISIT TRACKING (12 MO.) 05/13/2019 19:57 [facility] [place] TYPE: Surgical Services DIAGNOSES: - Other specified diseases of pancreas - Other problems related to lifestyle - Obstruction of bile duct - Abnormal weight loss [email or web address]
[2019-08-02] MEDS ORDERED: PROCHLORPERAZIN10 MG PO (09:18)
[2019-08-02] MEDS ORDERED: ATIVAN1 MG PO (09:19)
--- NOTE | 2019-08-02 12:41 | NUR ---
DR. CRAWLEY NOTIFIED THAT PATIENT HAD BG OF 408, PLAN TO GIVE 12 UNITS PER S/S. PATIENT 90% ON ROOM AIR, IS AWARE. IV BOLUS INFUSING. PATIENT TO BE ON CYTOTOXIC PRECAUTIONS IN EFFECT.
--- NOTE | 2019-08-02 13:15 | NUR ---
PT RESTING IN HIS BED HAVING SOME CLEAR LIQUIDS. HE STATES HIS PAIN LEVEL IS A 7 BUT THINKS IT IS A LITTLE BETTER.
--- NOTE | 2019-08-02 14:15 | NUR ---
PATIENT UP TO CHAIR WITH STANDBY ASSIST, VITALS DONE. URINAL EMPTIED FOR 150ML OF TONY URINE. AFTERNOON LACTIC ACID 4.5 DR AND PRIMARY NURSE NOTIFIED.
--- NOTE | 2019-08-02 15:30 | NUR ---
DR CRAWLEY IS AWARE OF THE LACTIC ACID AND STATES THIS IS DUE TO THE PT JUST RECIVING CHEMO AND IS NOT RELATED TO AN INFECTION.
--- NOTE | 2019-08-02 15:34 | NUR ---
PT'S PAIN JUST TREATED BY ANOTHER RN. PT WAS ENCOUARGE TO CALL WITH INCREASING PAIN AND NOT TO WAIT TO BE CHECKED UP ON THE NOTIFY STAFF OF HIS PAIN. HE STATES UNDERSTANDING AND STATES HE WILL DO SO. SEE EMAR.
--- NOTE | 2019-08-02 16:42 | NUR ---
PT CONTINUES SLEEPING AT THIS TIME.
[2019-08-02] MEDS ORDERED: OXALIPLATIN100 MG IV (16:47)
[2019-08-02] MEDS ORDERED: LEUCOVORIN CAL200 MG IV (16:48)
[2019-08-02] MEDS ORDERED: FLUOROURACIL IV (16:49)
[2019-08-02] MEDS ORDERED: CAMPTOSAR100 MG/5 M IV (16:49)
--- NOTE | 2019-08-02 17:15 | NUR ---
PT STATES HIS ABD PAIN IS A 7. PT MEDICATED ORDERED, SEE EMAR.
--- NOTE | 2019-08-02 18:52 | NUR ---
PT STATES HIS PAIN IS NOW ACCEPTABLE AND RATES IT AT A 5/10 AT THIS TIME.
--- NOTE | 2019-08-02 19:25 | NUR ---
REPORT RECEIVED FROM DAY SHIFT RN. PT LYING IN BED, ALERT AND ORIENTED. PT C/O ABD PAIN, DAY SHIFT RN TO MEDICATE. ROOM TEMP WATER GIVEN. PT DENIES OTHER NEEDS AT THIS TIME. CALL LIGHT WITHIN REACH.
--- NOTE | 2019-08-02 19:50 | NUR ---
DERMATOLOGIST ROUNDING NOTE. PT RESTING IN BED VISITING WITH HIS DAUGHTER. OTHER VISITOR ASKING QUESTIONS ABOUT SHALLOW RESPIRATIONS, INQUIRING ABOUT OVER ALL UPDATE. UPDATE PROVIDED. EDUCATION PROVIDED. FURTHER QUESTIONS, CONCERNS, OR NEEDS AT THIS TIME. CALL LIGHT IN REACH.
--- NOTE | 2019-08-02 20:00 | NUR ---
PT FAMILY IN TO VISIT. RESPIRATIONS NOTED TO BE SHALLOW, OXYGEN SATS BETWEEN 88-92%, RR 28. O2 2L/NC PLACED.
--- NOTE | 2019-08-02 20:40 | NUR ---
VS COMPLETE. BP NOTED TO BE LOW WITH ELEVATED HR. MANUAL BP DONE TO CONFIRM. PT DENIES DIZZINESS OR SOB. RAPID SHALLOW RESPIRATIONS NOTED, PT STATES DUE TO PAIN HE IS NOT ABLE TO TAKE A "FULL BREATH". MD IN TO SEE PT. IV BOLUS STARTED. MD TO TRANSFER PT TO CCU. REPORT CALLED TO CCU RN.
--- NOTE | 2019-08-02 20:45 | NUR ---
PT TRANSFERED TO CCU VIA BED
--- NOTE | 2019-08-02 22:25 | NUR ---
ADMIT TO RM 128 FROM [facility], REPORT RECEIVED FROM VERONICA PHILLIP. DR CRAWLEY HERE. PT IS ALERT, ORIENTED HAVING SEVERE ABD PAIN. IS TACHYPNEAC, TACHYCARDIC AND SL DIAPHORETIC. HAS INTERMITT NAUSEA. LR BOLUS INFUSING ON ADMIT, HAS SINCE COMPLETED. PT CONT TO BE HYPOTENSIVE. PORT ACESSED PER JAYLON PHILLIP WITH GOOD BLOOD RETURN AND LEVOPHED STARTED AT 5MCG AT 2145. GTT INC TO 10MCG AT 2215 FOR BP 78/60.
--- NOTE | 2019-08-02 23:25 | NUR ---
HR TO 140'S AFTER LEVOPHED STARTED AND TITRATED UP TO 10MCG. DR CRAWLEY AWARE. GIVEN ANOTHER 1L BOLUS LR AND VASOPRESSIN STARTED AT 0.1UNIT. HAVING DIFFICULTY GETTING OXYMETER WAVEFORM BUT WHEN IT IS THERE SATS UPPER 80'S AND 02 INC TO 4LNC.
--- NOTE | 2019-08-02 23:45 | NUR ---
PT TO CT PER BED WITH RN, NOW BACK. PT REMAINS ALERT AND ORIENTED. CONT TO HAVE DISCOMFORT AND IS RESTLESS. BREATH TONES NOW HAVE RHONCHI, DR CRAWLEY AWARE. ABD HAS BECOME MORE FIRM. STATES IS PASSING GAS.
--- NOTE | 2019-08-03 00:48 | NUR ---
16F PINEDA CATH INSERTED WITHOUT DIFFICULTY, RETURN 30ML CONCENTRATED URINE. PT MINE WELL. RT IN ROOM 02 NEEDS HAVE INCREASED. CONT TO BE PALE AND SL DIAPHORETIC AND HAS MOTTLING AROUND KNEES RADIATING TO LOWER LEGS. TAKE SIPS WATER FOR COMFORT.
--- NOTE | 2019-08-03 01:00 | NUR ---
DR CRAWLEY IN DEPT TO SPEAK TO PT ABOUT PROGNOSIS. DR CRAWLEY NOTIFIED DAUGHTER.
--- NOTE | 2019-08-03 01:45 | NUR ---
FAMILY AT BEDSIDE. PT'S SPEECH IS DIFFICULT TO UNDERSTAND. FAMILY ASKING IF IT IS DUE TO A REACTION TO MEDS, EXPLAINED WAS DUE TO HIS BODY FUNCTIONS STARTING TO SHUT DOWN. PT INDICATING HE WANTS SOMETHING FOR PAIN.
--- NOTE | 2019-08-03 01:55 | NUR ---
GIVEN 1MG DILAUDID IV FOR PAIN.
--- NOTE | 2019-08-03 02:10 | NUR ---
PT STOPPED BREATHING AND IN ASYSTOLE. DR CRAWLEY IN TO PRONOUNCE PT. PT'S DAUGHTER AND HER BOYFRIEND AT BEDSIDE.
--- NOTE | 2019-08-03 04:21 | NUR ---
I WAS NOTIFIED BY PEGGY FORTUNE THAT PT HAD PASSED AND FAMILY WAS WITH HIM. I ARRIVED AND MET HIS DAUGHTER KATIE AND HER BOY FRIEND ELOINA. I MET WITH THEM AND HAD HER RECOUNT WHAT SHE REMEMBERS ABOUT THE EVENTS OF TODAY. I HAD BEEN WITH PT AND KATIE WED WHEN HE HAD HIS FIRST CHEMO TREATMENT. SHE FELT SHE NEEDED TO CONTACT HER MOTHER IN [facility] FOR ARRANGEMENTS-[facility] VERMA WAS SELECTED. HER AUNT ARRIVED FROM [facility] AND WAS HELPFUL FOR KATIE. HAD PRAYER, GAVE HER A P.SHAWL AND CONTACTED . THEY CHOSE TO LEAVE AND TOOK PTS' BELONGING WITH THEM. ESCORTED BODY TO VEHICLE AND GAVE PAPER WORK TO DIRECTOR AND PLACED [facility] DOCUMENTS IN PTS' CHART. WILL FOLLOW NEEDED
== END 2019-08-03 04:45 | DRG 394 ==
LOC: ED 04:15 → MS 11:35 → CCU 20:54
PROVIDERS: ADMIT Student in an Organized Health Care Education/Training Program
DX: K55.019 Acute (reversible) ischemia of small intestine, extent unspecified (principal); K52.1 Toxic gastroenteritis and colitis; R18.8 Other ascites; C25.9 Malignant neoplasm of pancreas, unspecified; K55.069 Acute infarction of intestine, part and extent unspecified; T45.1X5A Adverse effect of antineoplastic and immunosuppressive drugs, initial encounter; E78.5 Hyperlipidemia, unspecified; F41.9 Anxiety disorder, unspecified; E11.9 Type 2 diabetes mellitus without complications; F17.200 Nicotine dependence, unspecified, uncomplicated; Z51.5 Encounter for palliative care; Z79.84 Long term (current) use of oral hypoglycemic drugs; Z79.1 Long term (current) use of non-steroidal anti-inflammatories (NSAID); Z79.02 Long term (current) use of antithrombotics/antiplatelets; Z79.891 Long term (current) use of opiate analgesic; Z79.899 Other long term (current) drug therapy
CPT/HCPCS: 36415; 51702; 71045; 74176; 74177; 80053; 81001; 83605; 83690; 85025; 94799; 99285-25; 99406; C9113; J0461; J0692; J0780; J1170; J1815; J2405; J7030; J7060; J7121; Q9967